=== PATIENT | female | born 1955 | race Caucasian/White ===

== ENCOUNTER 2020-02-09 14:05 | Outpatient (CLI) | payer BC, SELFPAY ==
--- NOTE | ~2020-02-09 | MM_ITS ---
EXAMINATION: MM screening [facility] HISTORY: Screening mammogram TECHNIQUE: Craniocaudal and mediolateral oblique 3-D tomosynthesis images were obtained and synthetic 2-D images were generated. CAD analysis was submitted and interpreted. COMPARISON: 12/10/2018, 11/13/2017, 10/24/2016 BREAST PARENCHYMAL COMPOSITION: There are scattered areas of fibroglandular density. FINDINGS: There is no evidence of suspicious mass, calcification, or architectural distortion to sugg est malignancy in either breast. There has been no suspicious interval change. IMPRESSION: 1. No mammographic evidence of malignancy. 2. Recommend routine screening mammography in one year. BI-RADS Category 1: Negative Reviewed, dictated and finalized at location A.
== END 2020-02-09 14:06 | disposition home or self-care (01) ==
LOC: ANHIMG 14:08
PROVIDERS: PCP Physician Assistant; Visit Provider Nurse Practitioner
DX: Z12.31 Encounter for screening mammogram for malignant neoplasm of breast (principal)
CPT/HCPCS: 77063; 77067

== ENCOUNTER → 2020-08-31 01:50 | Outpatient (CLI) | payer MEDICARE, SELFPAY ==
[2020-08-31 18:54] LABS: SARS-CoV-2 RNA PCR Negative
== END ==
PROVIDERS: Family Provider Family Medicine; PCP Physician Assistant; Visit Provider Internal Medicine Gastroenterology
DX: Z01.812 Encounter for preprocedural laboratory examination (principal); Z20.822 Contact with and (suspected) exposure to COVID-19
CPT/HCPCS: C9803; U0003; U0005

== ENCOUNTER 2020-09-04 00:13 | Day surgery (SDC) | payer MEDICARE, SELFPAY ==
[2020-07-19 14:48] VITALS: BMI 39.0
[2020-08-19 14:30] VITALS: BMI 39.2
--- NOTE | 2020-09-03 11:35 | WPDANESEPPF ---
Anes - Initial Pre Proc Eval Procedure: Operation Date: 09/04/20 08:30 Proposed Procedures p Screening Colonoscopy - Daniele Hdz MD <Austin Barber, DO - Last Filed: 09/03/20 11:37> Date/Time: 09/03/20 11:35 <Austin Barber DO - Last Filed: 09/03/20 11:37> Surgeon: Daniele Hdz MD <Austin Barber, DO - Last Filed: 09/03/20 11:37> Pre Op Diagnosis: Neoplasm Screening <Austin Barber DO - Last Filed: 09/03/20 11:37> Patient Data Age: 65 Gender: F Height: 1.75 m Weight: 120.5 kg <Austin Barber DO - Last Filed: 09/03/20 11:37> Allergies Allergy/AdvReac Type Severity Reaction Status Date / Time Penicillins Allergy Intermediate Hives Verified 09/04/20 07:16 sulfa Allergy Intermediate Other Uncoded 07/19/20 14:49 <Austin Barber DO - Last Filed: 09/03/20 11:37> Home Medications Medication Instructions Recorded Confirmed Type allopurinol 300 mg PO DAILY 07/19/20 08/19/20 History aspirin 325 mg PO DAILY 07/19/20 08/19/20 History atorvastatin 40 mg PO DAILY 07/19/20 08/19/20 History cholecalciferol (vitamin D3) 125 mcg PO DAILY 07/19/20 08/19/20 History [Vitamin D3] cyanocobalamin (vitamin B-12) 500 mcg PO DAILY 07/19/20 08/19/20 History [Vitamin B-12] fluticasone propionate [Flonase] 2 spray INTRANASAL DAILY PRN 07/19/20 08/19/20 History levothyroxine 50 mcg PO DAILY 07/19/20 08/19/20 History metformin 2,000 mg PO DAILY 07/19/20 08/19/20 History olmesartan-hydrochlorothiazide 1 tablet PO DAILY 07/19/20 08/19/20 History omega-3 fatty acids-vitamin E 1 cap PO DAILY 07/19/20 08/19/20 History [Fish Oil] semaglutide [Ozempic] 1 mg SUBCUT WEEKLY 07/19/20 08/19/20 History <Austin Barber DO - Last Filed: 09/03/20 11:37> Patient hx anesthesia problems: none <Miah Galindo MD - Last Filed: 09/04/20 07:37> Family hx anesthesia problems: none <Miah Galindo MD - Last Filed: 09/04/20 07:37> [facility] Past Medical History Medical History: Medical History (Updated 09/03/20 @ 11:36 by Austin Barber DO) 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 Diabetes type 2, controlled Hyperlipidemia Hypertension Hypothyroidism Neuropathy WAYLON (obstructive sleep apnea) CPAP TIA (transient ischemic attack) 2017 <Austin Barber DO - Last Filed: 09/03/20 11:37> Surgical History Surgical History: Surgical History (Updated 09/03/20 @ 11:36 by Austin Barber DO) History of x3 History of hysterectomy <Austin Barber DO - Last Filed: 09/03/20 11:37> Social History Social History: Social History Smoking status: Never smoker Substance use type: does not use Living arrangements: alone Spiritual care concerns: No <Austin Barber DO - Last Filed: 09/03/20 11:37> Anes - Eval Final PreProcedure Day of Procedure 09/03/20 11:35 <Austin Barber DO - Last Filed: 09/03/20 11:37> Patient weight: obese <Austin Barber DO - Last Filed: 09/03/20 11:37> Heart: regular rate and rhythm <Austin Barber DO - Last Filed: 09/03/20 11:37> Lungs: clear to auscultation and normal air movement <Austin Barber DO - Last Filed: 09/03/20 11:37> Airway: Mallampati scale class II <Austin Barber DO - Last Filed: 09/03/20 11:37> Neurological: alert and oriented <Austin Barber DO - Last Filed: 09/03/20 11:37> Last oral intake: >/= 8 hours <Austin Barber DO - Last Filed: 09/03/20 11:37> ASA classification: III <Austin Barber DO - Last Filed: 09/03/20 11:37> Emergent: no <Austin Barber DO - Last Filed: 09/03/20 11:37> Anesthetic plan: proceed <Austin Barber DO - Last Filed: 09/03/20 11:37> Anesthesia type and monitoring: general GIVS and standard monitorin
[2020-09-04 07:17] VITALS: BP 125/92; PULSE 106; RESP 20; TEMP 36.3; O2SAT 97; BMI 37.3
[2020-09-04] MEDS: LACTATED RINGERS 1,000 ML 150 ML IV CONT (07:26)
[2020-09-04 07:45] LABS: Glucose Point of Care 133 (65-105)
--- NOTE | 2020-09-04 08:45 | PM.HPGS ---
History of Present Illness History of Present Illness Consent: Risks, benefits, and alternatives have been discussed and questions answered. Patient agrees to proceed with procedure. Chief complaint: Neoplasm Screening Narrative: Iveth Cortez is a 65 year old female here for screening colonoscopy, last one 2010 Review of Systems Constitutional: Constitutional: Denies headache(s) and Denies weakness Eyes: Eyes: Denies blurry vision ENT: Reports Normal hearing present, Denies headache(s) and Denies neck pain Cardiovascular: Cardiovascular: Denies chest pain and Denies dyspnea Respiratory: Respiratory: Denies dyspnea Gastrointestinal: Gastrointestinal: Reports no additional gastrointestinal complaints Genitourinary: Genitourinary: Denies dysuria Musculoskeletal: Musculoskeletal: Denies neck pain Integumentary/Breasts: Skin/Breast: Denies dry skin Neurologic: Reports Normal hearing present, Denies headache(s) and Denies weakness Psychiatric: Psychiatric: Denies anxiety Endocrine: Endocrine: Denies change in body appearance Hematologic/Lymphatic: Hematologic/Lymphatic: Denies easy bleeding Allergic/Immunologic: Allergic/Immunologic: Denies urticaria PMFSH Past Medical History Medical History (Updated 09/04/20 @ 08:45 by Daniele Hdz MD) Colon cancer screening 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 Diabetes type 2, controlled Hyperlipidemia Hypertension Hypothyroidism Neuropathy WAYLON (obstructive sleep apnea) CPAP TIA (transient ischemic attack) 2017 Surgical History Surgical History (Updated 09/03/20 @ 11:36 by Austin Barber DO) History of x3 History of hysterectomy Social History Social History Smoking status: Never smoker Substance use type: does not use Living arrangements: alone Spiritual care concerns: No Meds Home Medications and Allergies Home Medications Medication Instructions Recorded Confirmed Type allopurinol 300 mg PO DAILY 07/19/20 08/19/20 History aspirin 325 mg PO DAILY 07/19/20 08/19/20 History atorvastatin 40 mg PO DAILY 07/19/20 08/19/20 History cholecalciferol (vitamin D3) 125 mcg PO DAILY 07/19/20 08/19/20 History [Vitamin D3] cyanocobalamin (vitamin B-12) 500 mcg PO DAILY 07/19/20 08/19/20 History [Vitamin B-12] fluticasone propionate [Flonase] 2 spray INTRANASAL DAILY PRN 07/19/20 08/19/20 History levothyroxine 50 mcg PO DAILY 07/19/20 08/19/20 History metformin 2,000 mg PO DAILY 07/19/20 08/19/20 History olmesartan-hydrochlorothiazide 1 tablet PO DAILY 07/19/20 08/19/20 History omega-3 fatty acids-vitamin E 1 cap PO DAILY 07/19/20 08/19/20 History [Fish Oil] semaglutide [Ozempic] 1 mg SUBCUT WEEKLY 07/19/20 08/19/20 History Allergies Allergy/AdvReac Type Severity Reaction Status Date / Time Penicillins Allergy Intermediate Hives Verified 09/04/20 07:16 sulfa Allergy Intermediate Other Uncoded 07/19/20 14:49 Vital Signs Vital Signs - 24 hr 09/04/20 07:17 Temperature 97.3 F L Pulse Rate 106 H Respiratory Rate 20 Blood Pressure 125/92 H Pulse Oximetry 97 Exam Const: General: comfortable and no acute distress HENMT: General nose exam: Normal nares present Eyes: General: appearance normal, both eyes and all related structures Neck: Neck: no JVD Resp: Auscultation: clear to auscultation bilaterally Cardio: Rate: regular rate Rhythm: regular rhythm GI: Inspection: non-distended GI Palp: Yes Soft to palpation Skin: General skin exam: normal color Neuro: General: gait normal Speech: normal speech Extrem: General: normal to inspection Psych: Mental Status: mental status grossly normal Assessment and Plan Assessment and plan (1) Colon cancer screening: Code(s): Z12.11 - Encounter for screening for malignant neoplasm of colon Status: Acute Assessment and Plan: proceed with colonoscopy
[2020-09-04 09:15] VITALS: BP 100/63; PULSE 102; RESP 24; O2SAT 96
[2020-09-04 09:25] VITALS: BP 104/65; PULSE 96; RESP 21; O2SAT 95
[2020-09-04 09:35] VITALS: BP 114/77; PULSE 94; RESP 17; O2SAT 94
== END 2020-09-04 09:50 | disposition home or self-care (01) ==
PROVIDERS: Family Provider Family Medicine; PCP Physician Assistant; Visit Provider Internal Medicine Gastroenterology
PROC: 0DJD8ZZ Inspection of Lower Intestinal Tract, Via Natural or Artificial Opening Endoscopic (ICD-10-PCS; CPT 45378; principal; 2020-09-04 08:30)
DX: Z12.11 Encounter for screening for malignant neoplasm of colon (principal); D12.0 Benign neoplasm of cecum; D12.5 Benign neoplasm of sigmoid colon; D12.2 Benign neoplasm of ascending colon; Q27.33 Arteriovenous malformation of digestive system vessel; K64.8 Other hemorrhoids; I10 Essential (primary) hypertension; E11.40 Type 2 diabetes mellitus with diabetic neuropathy, unspecified; Q63.8 Other specified congenital malformations of kidney; E78.5 Hyperlipidemia, unspecified; E03.9 Hypothyroidism, unspecified; G47.33 Obstructive sleep apnea (adult) (pediatric); Z86.73 Personal history of transient ischemic attack (TIA), and cerebral infarction without residual deficits; Z79.84 Long term (current) use of oral hypoglycemic drugs; Z79.82 Long term (current) use of aspirin
CPT/HCPCS: 45385; 82948; 88305; C9803; J2704; J7120; U0003; U0005

== ENCOUNTER 2021-02-20 09:06 | Outpatient (CLI) | payer MEDICARE, SELFPAY ==
--- NOTE | ~2021-02-20 | MM_ITS ---
EXAMINATION: MM screening [facility] HISTORY: Screening TECHNIQUE: Craniocaudal and mediolateral oblique 3-D tomosynthesis images were obtained and synthetic 2-D images were generated. CAD analysis was submitted and interpreted. COMPARISON: Comparison to multiple prior studies sequentially, with oldest reviewed study dated 07/2015. BREAST PARENCHYMAL COMPOSITION: There are scattered areas of fibroglandular density. FINDINGS: There is no evidence of suspicious mass, calcification, or architectural distortion to sugg est malignancy in either breast. There has been no suspicious interval change. IMPRESSION: 1. No mammographic evidence of malignancy. 2. Recommend routine screening mammography in one year. BI-RADS Category 1: Negative Reviewed, dictated and finalized at location A.
== END 2021-02-20 09:07 | disposition home or self-care (01) ==
PROVIDERS: PCP Physician Assistant; Visit Provider Nurse Practitioner
DX: Z12.31 Encounter for screening mammogram for malignant neoplasm of breast (principal)
CPT/HCPCS: 77063; 77067

== ENCOUNTER 2021-08-08 03:57 | Day surgery (SDC) | payer MEDICARE, SELFPAY ==
[2021-08-07 14:39] VITALS: BMI 37.4
[2021-08-08] VITALS (15 sets, daily range): BP systolic 105–132; BP diastolic 70–86; PULSE 67–89; RESP 12–16; TEMP 36.3–36.8; O2SAT 90–99; BMI 36.4
[2021-08-08 10:50] LABS: Basophils Absolute Auto 0.1 K/mm3 (0.0-0.1); Basophils Percent Auto 0.7 % (0.2-1.2); Eosinophils Absolute Auto 0.2 K/mm3 (0-0.3); Eosinophils Percent Auto 2.1 % (0-4.4); Hemoglobin 12.3 g/dL (12.0-15.0); Immature Granulocyte Absolute 0.07 K/mm3 (0.00-0.031); Immature Granulocyte Percent A 0.8 % (0-0.5); Lymphocytes Absolute Auto 2.32 K/mm3 (0.9-3.2); Lymphocytes Percent Auto 26.1 % (18.3-44.2); Mean Corpuscular HGB Conc 33.2 g/dl (32-36); Mean Corpuscular Hemoglobin 28.7 pg (26-34); Mean Corpuscular Volume 86.2 fl (80-100); Mean Platelet Volume 10.5 fl (7.4-10.4); Monocytes Absolute Auto 0.7 K/mm3 (0.1-0.6); Monocytes Percent Auto 7.3 % (2.6-8.5); Neutrophils Absolute Auto 5.6 K/mm3 (1.3-6.7); Platelet Count Result 314 k/mm3 (150-375); Red Blood Count 4.29 M/mm3 (4.2-5.4); Red Cell Distribution Width 17.1 % (11.5-14.5); White Blood Count 8.9 K/mm3 (4.5-10.0)
[2021-08-08 11:00] LABS: Anion Gap 7 mmol/L (8-16); Blood Urea Nitrogen 17 mg/dL (7-17); Calcium 10.1 mg/dL (8.4-10.2); Carbon Dioxide 25 mmol/L (22-30); Chloride 105 mmol/L (98-107); Estimated CRCL calculation 64 ml/min; Estimated Glomerular Filt Rate 55; Glucose 123 mg/dL (65-110); Sodium 137 mmol/L (137-145)
[2021-08-08 11:01] LABS: Prothrombin Time 12.9 Seconds (11.1-14.7)
--- NOTE | 2021-08-08 12:22 | WPDMODSED ---
Moderate Sedation Note-Pt Data Patient Data Diagnosis: Presumed coronary artery disease abnormal CTA Present Complaint: exertional shortness of breath which is chronic Procedure to be performed/Plan: left heart catheterization Allergies Allergy/AdvReac Type Severity Reaction Status Date / Time Penicillins Allergy Intermediate Hives Verified 08/08/21 10:29 sulfa Allergy Mild Other Uncoded 08/08/21 10:29 Home Medications Medication Instructions Recorded Confirmed Type allopurinol 300 mg PO DAILY 07/19/20 08/08/21 History aspirin 325 mg PO DAILY 07/19/20 08/08/21 History atorvastatin 40 mg PO DAILY 07/19/20 08/07/21 History cholecalciferol (vitamin D3) 125 mcg PO DAILY 07/19/20 08/08/21 History [Vitamin D3] cyanocobalamin (vitamin B-12) 500 mcg PO DAILY 07/19/20 08/07/21 History [Vitamin B-12] fluticasone propionate [Flonase] 2 spray INTRANASAL DAILY PRN 07/19/20 08/07/21 History levothyroxine 50 mcg PO DAILY 07/19/20 08/08/21 History metformin 2,000 mg PO DAILY 07/19/20 08/07/21 History olmesartan-hydrochlorothiazide 1 tablet PO DAILY 07/19/20 08/07/21 History semaglutide [Ozempic] 1 mg SUBCUT WEEKLY 07/19/20 08/07/21 History cyanocobalamin-cobamamide [B12] jennifer SUBLINGUAL 08/07/21 History Current Medications: Active Medications Sodium Chloride (Normal Saline Iv) 500 mls @ 100 mls/hr IV CONT .Q5H PRIYA Sedation/Anesthesia: No previous sedation/anesthesia problems (including family history). 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 Diabetes type 2, controlled Hyperlipidemia Hypertension Hypothyroidism Neuropathy WAYLON (obstructive sleep apnea) CPAP TIA (transient ischemic attack) 2017 Surgical History Surgical History (Updated 09/03/20 @ 11:36 by Austin Barber DO) History of x3 History of hysterectomy Social History Social History Smoking status: Never smoker Alcohol intake: never Substance use: never Substance use type: does not use Spiritual care concerns: No Mod Sed Physical Exam Physical Exam Pre Procedural Exam: Normal: Neck, Throat, Airway, Lungs, Heart Size, Heart Rate, Heart Rhythm, Neuro Exam and Extremities and Variation: Appearance ( pleasant obese lady no apparent distress) Hours since solid foods: 12 Hours since liquid intake: 12 Mallampati Classification: class II Internal Medicine - PN: Obj Da Vital Signs Vital Signs: Vital Signs - 24 hr 08/08/21 10:35 Temperature 36.3 C L Respiratory Rate 12 Blood Pressure 132/86 Pulse Oximetry 99 Meds/Results Medications: Active Medications Generic Name Dose Route Start Last Admin Trade Name Freq PRN Reason Stop Dose Admin Sodium Chloride 500 mls @ 100 mls/hr 08/08/21 10:00 Normal Saline Iv IV CONT .Q5H PRIYA Labs CBC & Chem 7: 08/08/21 10:19 08/08/21 10:19 Labs: Laboratory Results - last 24 hr 08/08/21 08/08/21 08/08/21 10:19 10:19 10:19 WBC 8.9 RBC 4.29 Hgb 12.3 Hct 37.0 MCV 86.2 MCH 28.7 MCHC 33.2 RDW 17.1 H Plt Count 314 MPV 10.5 H Immature Gran % (Auto) 0.8 H Neut % (Auto) 63.0 Lymph % (Auto) 26.1 [place] % (Auto) 7.3 Eos % (Auto) 2.1 Baso % (Auto) 0.7 Lymph # (Auto) 2.32 [place] # (Auto) 0.7 H Eos # (Auto) 0.2 Baso # (Auto) 0.1 Abs Immat Gran (auto) 0.07 H Absolute Neuts (auto) 5.6 Absolute Nucleated RBC 0.0 Nucleated RBC % 0.0 PT 12.9 INR 1.0 Sodium 137 Potassium 4.0 Chloride 105 Carbon Dioxide 25 Anion Gap 7 L BUN 17 Creatinine 1.00 Estim Creat Clear Calc 64 Estimated GFR 55 L Glucose 123 H Calcium 10.1 ASA Classification/Sedation ASA Classification/Sedation ASA Class: II Emergent: No Risks: Risks, benefits and alternatives explained and patient/family accep
--- NOTE | 2021-08-08 13:01 | WPDCARDPROC ---
Cardiac Cath Procedure Note Date of procedure:: 08/08/21 Performing physician:: Leroy Christianson MD Indication:: Abnormal coronary CTA Brief clinical history:: this is a 66-year-old woman without any previous coronary disease and denies any symptoms of chest pain. She has been found to have a significantly abnormal ECG which led to a noninvasive workup including a coronary CTA which apparently a suggests that there is moderate stenosis in the left anterior descending. Because of this an angiogram has been recommended. Procedure Procedure performed:: Left ventriculogram coronary angiogram Sedation/Medication given:: fentanyl 50 mg Versed 2 mg case start time 12:28 p.m. case end time 12:58 p.m. sedation provided by Disha Self RN, trained observer Access site:: right femoral artery Estimated blood loss:: 20-30 cc Procedure note:: patient was brought to the cardiac catheterization lab in the postabsorptive state where the right femoral triangle was prepared and draped in the normal fashion. Anesthesia was provided with 1% lidocaine infiltrated locally. Using the modified Seldinger technique a 5 [place] sheath was placed into the femoral artery after this left heart catheterization was carried out. I used a 5 [place] angled pigtail catheter to measure left-sided hemodynamics and to perform a left ventriculogram in the [place] projection. After this the right coronary artery was engaged and injected using a 5 [place] JR4 catheter. The left coronary was engaged and injected using a 5 [place] FL4 catheter. I then re-engage the right coronary using a 5 [place] AL1 catheter. Following this the case was terminated angiogram was done of the femoral artery through the sheath after which I decided to have the sheath removed with direct manual compression. The patient tolerated the procedure well there were no apparent complications. 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 Findings:: Hemodynamics: Central aortic pressure was 118 over 70 left ventricle 118/2 end-diastolic 12. There was no gradient on pullback across the aortic valve. Left ventricle: The LV is normal in size and contracts vigorously in all segments the ejection fraction I would visually estimate to be 60% without regional wall motion abnormalities. The left main coronary artery is large in caliber and nicely patent the left anterior descending is a moderate to large caliber artery proximally and then tapers to become very small and terminates prior to the apex. The proximal aspect of the LAD is moderately calcified. There is no flow-limiting stenosis in the vessel. A very small 2nd septal branch has an ostial 80% stenosis. The circumflex is a medium caliber vessel giving rise to the marginal branches the circumflex is angiographically unremarkable. The right coronary artery is very large in caliber and dominant to the posterior circulation the right coronary artery is smooth and angiographically normal in appearance. 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 Initially I was considering that this could be an anomalous vessel but it proved to be a fistulous connection to a cardiac vein. Conclusion:: 1. Right coronary dominant circulation with no significant coronary artery stenosis save for about 80% stenosis of a small 2nd septal branch of the LAD. 2. Moderately calcified proximal LAD probably resulting in the impression on CTA that there is a stenosis in this segment. 3. 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 Leroy Christianson MD FACC
== END 2021-08-08 18:50 | disposition home or self-care (01) ==
PROVIDERS: PCP Physician Assistant; Visit Provider Specialist
PROC: 4A023N7 Measurement of Cardiac Sampling and Pressure, Left Heart, Percutaneous Approach (ICD-10-PCS; CPT 93452; principal; 2021-08-08 11:30)
DX: I25.10 Atherosclerotic heart disease of native coronary artery without angina pectoris (principal); I65.21 Occlusion and stenosis of right carotid artery; I12.9 Hypertensive chronic kidney disease with stage 1 through stage 4 chronic kidney disease, or unspecified chronic kidney disease; Z86.73 Personal history of transient ischemic attack (TIA), and cerebral infarction without residual deficits; D64.9 Anemia, unspecified; E11.22 Type 2 diabetes mellitus with diabetic chronic kidney disease; N18.9 Chronic kidney disease, unspecified; E78.5 Hyperlipidemia, unspecified; G47.30 Sleep apnea, unspecified; Z79.82 Long term (current) use of aspirin; Z79.84 Long term (current) use of oral hypoglycemic drugs; E03.9 Hypothyroidism, unspecified; G47.33 Obstructive sleep apnea (adult) (pediatric); R06.00 Dyspnea, unspecified; E11.40 Type 2 diabetes mellitus with diabetic neuropathy, unspecified
CPT/HCPCS: 36415; 80048; 85025; 85610; 93458; A9270; C1887; C1894; J1644; J2250; J3010; J7040

== ENCOUNTER → 2022-02-02 14:42 | Outpatient (CLI) | payer MEDICARE, SELFPAY ==
--- NOTE | ~2022-02-02 | XR_ITS ---
XR foot RT min 3V DATE: 02/02/2022 14:57 INDICATION: Foot ulcer, right third toe TECHNIQUE: 4 views of right foot COMPARISON: None FINDINGS: Anterior and posterior tibial artery, dorsalis pedis artery, metatarsal and even digital ar stella calcifications, suggesting diabetes. There is prominent soft tissue swelling of the third digit. There is osteoarthritic change at the tarsal and tarsometatarsal joints. There is mild deformity and flattening of the second metatarsal head, likely due to avascular necrosis. There is prominent plantar and mild posterior calcaneal enthesopathy. No fracture or dislocation, periosteal reaction or bone destruction is detected. 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
== END ==
PROVIDERS: PCP Physician Assistant; Visit Provider Physician Assistant
DX: L98.491 Non-pressure chronic ulcer of skin of other sites limited to breakdown of skin (principal); M79.89 Other specified soft tissue disorders; M19.071 Primary osteoarthritis, right ankle and foot; M77.31 Calcaneal spur, right foot
CPT/HCPCS: 73630

== ENCOUNTER → 2022-02-25 09:10 | Outpatient (CLI) | payer MEDICARE, SELFPAY ==
--- NOTE | ~2022-02-25 | DEXA_ITS ---
Bone Density Report Name: ISABELLA MUHAMMAD Age: 66 Sex: Female Ethnicity: White Date of : 1955 Indication: postmenopausal; screening for osteoporosis; height loss; hysterectomy; Referring Provider: LANCEMARA Study: Bone densitometry was performed. Exam Date: February 25, 2022 Accession number: [id number] Bone Density: Region BMD T-score Z-score Classification AP Spine (L1-L4) 1.272 2.0 4.0 Normal Femoral Neck (Left) 0.893 0.4 2.1 Normal Total Hip (Left) 1.111 1.4 2.8 Normal Femoral Neck (Right) 0.810 -0.3 1.3 Normal Total Hip (Right) 1.073 1.1 2.4 Normal Total Hip Mean 1.092 1.3 2.6 Normal World Health Organization criteria for BMD impression classify patients as: Normal (T-score at or above -1.0), Osteopenia (T-score between -1.0 and -2.5), or Osteoporosis (T-score at or below -2.5). 10-year Fracture Risk: FRAX not reported because: All T-scores for Spine Total, Hip Total, Femoral Neck at or above -1.0 Previous Exams: Region Exam Age BMD T-score BMD Change BMD Change Date g/cm2 vs Baseline vs Previous AP Spine(L1-L4) 02/25/2022 66 1.272 2.0 0.005 0.088* 11/13/2017 62 1.184 1.2 -0.083* -0.030* 08/08/2013 58 1.214 1.5 -0.053* -0.027* 10/25/2009 54 1.241 1.8 -0.026* -0.026* 09/03/2006 51 1.267 2.0 Total Hip(Left) 02/25/2022 66 1.111 1.4 -0.027* -0.057* 11/13/2017 62 1.167 1.8 0.029* -0.112* 08/08/2013 58 1.279 2.8 0.141* 0.058* 10/25/2009 54 1.222 2.3 0.084* 0.084* 09/03/2006 51 1.138 1.6 Total Hip(Right) 02/25/2022 66 1.073 1.1 -0.019 -0.038* 11/13/2017 62 1.111 1.4 0.019 -0.067* 08/08/2013 58 1.178 1.9 0.086* 0.012 10/25/2009 54 1.166 1.8 0.074* 0.074* 09/03/2006 51 1.092 1.2 *Denotes significance at 95% confidence level, LSC for AP Spine = 0.022 g/cm2, LSC for Total Hip = 0.027 g/cm2 Clinical Information Provided by Patient: Has used the following medications: Vitamin D Has the following medical conditions: Hysterectomy, Only 1 functioning kidney Patient maximum height was 69 Menopause Age: 46 Drinks caffeinated beverages Onset of menses at age 13 Number of children 3 Impression: The patient has normal bone mass. The BMD
== END ==
PROVIDERS: PCP Physician Assistant; Visit Provider Physician Assistant
DX: Z78.0 Asymptomatic menopausal state (principal)
CPT/HCPCS: 77080

== ENCOUNTER 2022-03-27 15:38 | Emergency (ER) | payer MEDICARE, SELFPAY ==
--- NOTE | ~2022-03-27 | CT_ITS ---
EXAMINATION: CT facial & cervical spine wo DATE: 03/27/2022 15:58 INDICATION: Head and face and neck pain. Fall. TECHNIQUE: Computed tomography (CT) of the maxillofacial region and cervical spine was performed with out intravenous contrast. Automated exposure control and iterative reconstruction technique were empl oyed. The dose-length product was 464.41 mGy-cm. COMPARISON: None FINDINGS: MAXILLOFACIAL CT: There is right periorbital soft tissue swelling. There is a near complete opacification of left maxil gerard sinus and the left ethmoid and sphenoid sinuses. There is moderate mucosal thickening in left fr ontal sinus. There is thickening and sclerosis of the beltrán of left maxillary sinus. There is a dehis cence of floor of left orbit. There are erosions of the beltrán of sphenoid sinus with areas of dehisce nce. There is an osteoma in left ethmoid sinus. There is leftward deviation of the nasal septum. Ther e is occlusion of left ostiomeatal unit. CERVICAL SPINE CT: There are nodules in the thyroid measuring up to 2.1 cm. There is kyphosis of cervical spine. Vertebr al body heights are normal. There is severely decreased disc height at C5-C6. The following disc leve ls are specifically discussed: C2-C3: There is no uncovertebral joint osteoarthritis. There is severe bilateral facet joint osteoart hritis. There is mild bilateral neural foraminal stenosis. There is no central canal stenosis. C3-C4: There is mild bilateral uncovertebral joint osteoarthritis. There is severe bilateral facet jannet int osteoarthritis. There is mild right neural foraminal stenosis. There is mild central canal stenos is. C4-C5: There is mild bilateral uncovertebral joint osteoarthritis. There is severe right and mild lef t facet joint osteoarthritis. There is mild right neural foraminal stenosis. There is mild central ca nal stenosis. C5-C6: There is mild right and severe left uncovertebral joint osteoarthritis. There is severe bilate ral facet joint osteoarthritis. There is mild bilateral neural foraminal stenosis. There is mild cent ral canal stenosis. C6-C7: There is no uncovertebral joint osteoarthritis. There is moderate right and severe left facet joint osteoarthritis. There is no neural foraminal stenosis. There is no central canal stenosis. C7-T1: There is no uncovertebral joint osteoarthritis. There is severe bilateral facet joint osteoart hritis. There is mild right neural foraminal stenosis. There is no central canal stenosis. IMPRESSION: 1. No fracture. 2. Chronic sinusitis. 3. Severe cervical spondylosis. 4. Multinodular goiter. Thyroid ultrasound is recommended for risk stratification. Reviewed, dictated and finalized at location B. IMPRESSION: 1. No fracture. 2. Chronic sinusitis. 3. Severe cervical spondylosis. 4. Multinodular goiter. Thyroid ultrasound is recommended for risk stratificati on.
--- NOTE | ~2022-03-27 | CT_ITS ---
EXAMINATION: CT brain wo con DATE: 03/27/2022 15:58 INDICATION: Head injury. TECHNIQUE: Computed tomography (CT) of the head was performed without intravenous contrast. The mA wa s adjusted according to patient size. Iterative reconstruction technique was employed. The dose-lengt h product was 605.33 mGy-cm. COMPARISON: None FINDINGS: There is no intracranial hemorrhage, acute infarction, or abnormal intracranial mass lesion . There are scattered areas of low attenuation in the cerebral white matter, which is within normal l imits for the patient's age. The ventricles are normal in size. There is mucosal thickening in the pa ranasal sinuses including near complete opacification of left maxillary sinus with thickening and scl erosis of the sinus beltrán. There are erosions of the sinus beltrán including left sphenoid sinus with a reas of dehiscence. The mastoid air cells are normal. The orbits are normal. There is right periorbit al soft tissue swelling. IMPRESSION: 1. Normal aging brain. 2. Chronic sinusitis. Reviewed, dictated and finalized at location B.
[2022-03-27 16:05] VITALS: BP 123/73; PULSE 97; RESP 14; TEMP 36.4; O2SAT 99
--- NOTE | 2022-03-27 16:06 | ED.HEATRA ---
HPI - Head Injury General Chief complaint: Fall Stated complaint: fall/facial injury Time Seen by Provider: 03/27/22 15:41 History of Present Illness HPI Narrative: 66-year-old female presents the emergency room for evaluation of injury sustained from a fall. Patient states she tripped over her own feet and struck her head on the wall. Patient denies any altered mental status or loss of consciousness today. Patient denies any nausea or vomiting. Does report 2 lacerations 1 to the right brow and upper right lip. Related Data Home Medications Medication Instructions Recorded Confirmed allopurinol 300 mg tablet 300 mg PO DAILY 07/19/20 08/08/21 aspirin 325 mg tablet 325 mg PO DAILY 07/19/20 08/08/21 atorvastatin 40 mg tablet 40 mg PO DAILY 07/19/20 08/07/21 cholecalciferol (vitamin D3) 125 125 mcg PO DAILY 07/19/20 08/08/21 mcg (5,000 unit) tablet (Vitamin D3) cyanocobalamin (vitamin B-12) 500 500 mcg PO DAILY 07/19/20 08/07/21 mcg tablet (Vitamin B-12) fluticasone propionate 50 2 spray intranasal DAILY PRN Sinus 07/19/20 08/07/21 mcg/actuation nasal Symptoms spray,suspension levothyroxine 50 mcg tablet 50 mcg PO DAILY 07/19/20 08/08/21 metformin 1,000 mg tablet 2,000 mg PO DAILY 07/19/20 08/07/21 olmesartan 20 1 tablet PO DAILY 07/19/20 08/07/21 mg-hydrochlorothiazide 12.5 mg tablet semaglutide 1 mg/dose (2 mg/1.5 1 mg subcut WEEKLY 07/19/20 08/07/21 mL) subcutaneous pen injector (Ozempic) cyanocobalamin (B12)-cobamamide jennifer sublingual 08/07/21 5,000 mcg-100 mcg sublingual lozenge (B12) Allergies Allergy/AdvReac Type Severity Reaction Status Date / Time Penicillins Allergy Intermediate Hives Verified 08/08/21 10:29 sulfa Allergy Mild Other Uncoded 08/08/21 10:29 Review of Systems Review of Systems: CONSTITUTIONAL: Denies fever, chills, or sweats. EYES: Denies visual changes, redness, or discharge. ENT: Denies rhinorrhea, congestion, sore throat, or otalgia. CARDIOVASCULAR: Denies chest pain, palpitations, or edema. RESPIRATORY: Denies cough or dyspnea. GASTROINTESTINAL: Denies abdominal pain, nausea, vomiting, or diarrhea. GENITOURINARY: Denies dysuria or hematuria. SKIN: Reports facial laceration MUSCULOSKELETAL: Denies back pain, joint pain, or myalgia. NEUROLOGIC: Denies headache, numbness, dizziness, or weakness. PSYCHIATRIC: Denies anxiety or depression. 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 HEAD: Normocephalic, atraumatic. EYES: Conjunctivae normal, PERRLA and EOMI. CHEST: Clear to auscultation. No respiratory distress. No wheezes rales or rhonchi. No tenderness. HEART: Regular rate and rhythm. No murmur heard. Normal peripheral pulses. BACK: No cervical/thoracic/lumbar tenderness, step-offs, bony abnormality; FROM EXTREMITIES: Normal range of motion. No edema. No clubbing or cyanosis SKIN: Warm, dry, no rash. 1 cm laceration to the right upper lip, half centimeter laceration to right brow NEURO: No focal deficits. Alert and oriented x3. MAEW. CN's II-XI intact bilaterally, normal gait PSYCH: Cooperative. Normal mood and affect. Procedures Laceration Laceration 1: Date: 03/27/22 Time:
[2022-03-27 17:12] VITALS: BP 116/60; PULSE 103; RESP 18; O2SAT 100
== END 2022-03-27 17:14 | disposition home or self-care (01) ==
PROVIDERS: Emergency Provider Nurse Practitioner Family; PCP Physician Assistant
DX: S01.511A Laceration without foreign body of lip, initial encounter (principal); S01.111A Laceration without foreign body of right eyelid and periocular area, initial encounter; E11.40 Type 2 diabetes mellitus with diabetic neuropathy, unspecified; E78.5 Hyperlipidemia, unspecified; I10 Essential (primary) hypertension; E03.9 Hypothyroidism, unspecified; G47.33 Obstructive sleep apnea (adult) (pediatric); Z86.73 Personal history of transient ischemic attack (TIA), and cerebral infarction without residual deficits; Z79.84 Long term (current) use of oral hypoglycemic drugs; Z79.82 Long term (current) use of aspirin; Z90.710 Acquired absence of both cervix and uterus; W01.198A Fall on same level from slipping, tripping and stumbling with subsequent striking against other object, initial encounter
CPT/HCPCS: 12013; 70450; 70486; 72125; 99284

== ENCOUNTER 2022-05-02 07:43 | Inpatient (IN) | payer MEDICARE, SELFPAY ==
[2022-05-02] VITALS (29 sets, daily range): BP systolic 92–125; BP diastolic 60–72; PULSE 87–120; RESP 14–22; TEMP 36.4–36.9; O2SAT 92–100
[2022-05-02 08:20] LABS: Basophils Absolute Auto 0.1 K/mm3 (0.0-0.1); Basophils Percent Auto 0.7 % (0.2-1.2); Eosinophils Absolute Auto 0.2 K/mm3 (0-0.3); Eosinophils Percent Auto 2.8 % (0-4.4); Immature Granulocyte Absolute 0.03 K/mm3 (0.00-0.031); Immature Granulocyte Percent A 0.4 % (0-0.5); Lymphocytes Absolute Auto 2.25 K/mm3 (0.9-3.2); Mean Corpuscular HGB Conc 26.1 g/dl (32-36); Mean Corpuscular Hemoglobin 18.1 pg (26-34); Mean Corpuscular Volume 69.4 fl (80-100); Mean Platelet Volume 9.5 fl (7.4-10.4); Monocytes Absolute Auto 0.7 K/mm3 (0.1-0.6); Neutrophils Absolute Auto 4.1 K/mm3 (1.3-6.7); Neutrophils Percent Auto 56.1 % (45.5-73.1); Nucleated Red Blood Cells Absolute Auto 0.1 K/mm3 (0.0-0.012); Nucleated Red Blood Cells Perc 1.5 % (0.0-0.2); Platelet Count Result 457 k/mm3 (150-375); Red Blood Count 2.32 M/mm3 (4.2-5.4); Red Cell Distribution Width 22.2 % (11.5-14.5); White Blood Count 7.3 K/mm3 (4.5-10.0)
[2022-05-02 08:24] LABS: Hematocrit 16.1 % (37.0-47.0)
[2022-05-02 08:25] LABS: Hemoglobin 4.2 g/dL (12.0-15.0)
--- NOTE | 2022-05-02 08:25 | ED.RECABL ---
HPI - Recheck/Abnormal Lab/Rx General Chief Complaint: Recheck/Abnormal Lab/Rx Stated Complaint: Low Blood Count Time Seen by Provider: 05/02/22 07:51 History of Present Illness HPI narrative: Patient is a 66-year-old female who presents ER with anemia. Patient reports that she has been having some racing of the heart when walking and feeling fatigued so her PCP performed outpatient lab work yesterday. She is contacted today to be told that her hemoglobin is low. Patient reports some slightly darker stools but no increased reflux. No history of GI bleed. She has had a transfusion in the past but was related to heavy vaginal bleeding which no longer occurs. No chest pain or chest pressure. No loss of consciousness. Patient is not on any blood thinners. Related Data Home Medications Medication Instructions Recorded Confirmed allopurinol 300 mg tablet 300 mg PO DAILY 07/19/20 05/02/22 aspirin 325 mg tablet 325 mg PO DAILY 07/19/20 05/02/22 atorvastatin 40 mg tablet 40 mg PO DAILY 07/19/20 05/02/22 cholecalciferol (vitamin D3) 125 125 mcg PO DAILY 07/19/20 05/02/22 mcg (5,000 unit) tablet (Vitamin D3) cyanocobalamin (vitamin B-12) 500 500 mcg PO DAILY 07/19/20 05/02/22 mcg tablet (Vitamin B-12) fluticasone propionate 50 2 spray intranasal DAILY PRN Sinus 07/19/20 05/02/22 mcg/actuation nasal Symptoms spray,suspension levothyroxine 50 mcg tablet 50 mcg PO DAILY 07/19/20 05/02/22 olmesartan 20 1 tablet PO DAILY 07/19/20 05/02/22 mg-hydrochlorothiazide 12.5 mg tablet semaglutide 1 mg/dose (2 mg/1.5 1 mg subcut WEEKLY 07/19/20 05/02/22 mL) subcutaneous pen injector (Ozempic) Allergies Allergy/AdvReac Type Severity Reaction Status Date / Time Penicillins Allergy Intermediate Hives Verified 08/08/21 10:29 sulfa Allergy Mild Other Uncoded 08/08/21 10:29 Review of Systems Review of Systems: All systems reviewed & are unremarkable except as noted in HPI and below Constitutional: Constitutional: Denies chills, Reports fatigue and Denies fever(s) ENT: Denies nasal congestion and Denies sore throat Cardiovascular: Cardiovascular: Denies chest pain, Reports rapid heart rate and Denies radiating jaw, neck or arm pain Respiratory: Respiratory: Denies cough and Denies dyspnea Gastrointestinal: Gastrointestinal: Denies abdominal pain, Denies heartburn, Denies nausea and Denies vomiting Neurologic: Denies syncope, Denies headache(s), Denies focal weakness and Denies numbness PMFSH Past Medical History Medical History (Updated 05/02/22 @ 18:16 by Anamaria Ibarra PA-C) Abnormal cardiac CT angiography (07/2021) Chronic kidney disease, stage 3 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 Hyperlipidemia Hypertension Hypothyroidism Neuropathy Obstructive sleep apnea on CPAP Transient ischemic attack (2016) Type 2 diabetes mellitus Surgical History Surgical History (Updated 05/02/22 @ 12:43 by Anamaria Ibarra PA-C) History of appendectomy (2005) History of x3 History of cardiac catheterization (08/08/21) Right coronary dominant circulation with no significant coronary artery stenosis save for about 80% stenosis of a small 2nd septal branch of the LAD. Normal LV systolic function. History of colonoscopy (09/04/20) Per Dr. Hdz. Notable findings include benign colon polyps, arteriovenous malformations, and internal hemorrhoids. History of hysterectomy (2000) History of incision and drainage (2006) Perirectal abscess. History of tonsillectomy Family History Family History Mother Diabetes mellitus Heart problem Father Heart problem Diabetes mellitus Sibling ALS (amyotrophic lateral sclerosis) Social History Social History (Updated 05/02/22 @ 12:42 by Anamaria Ibarra PA-C) Social History: Surrogate medical decision maker: Joey Cortez, son. Code status: Full code. Smoking status: Nev
[2022-05-02 08:36] LABS: Alanine Aminotransferase 17 U/L (6-35); Albumin Level 3.8 g/dL (3.5-5.1); Alkaline Phosphatase 158 U/L (38-126); Anion Gap 11 mmol/L (8-16); Aspartate Amino Transferase 21 U/L (14-36); Bilirubin Indirect 0.6 mg/dL (0-1.1); Bilirubin,Total 0.8 mg/dL (0.2-1.3); Blood Urea Nitrogen 23 mg/dL (7-17); Calcium 8.8 mg/dL (8.4-10.2); Carbon Dioxide 19 mmol/L (22-30); Chloride 104 mmol/L (98-107); Estimated CRCL calculation 51 ml/min; Estimated Glomerular Filt Rate 45; Glucose 143 mg/dL (65-110); Sodium 134 mmol/L (137-145)
[2022-05-02 08:37] LABS: Iron 24 ug/dL (37-170); Lactate Dehydrogenase 199 U/L (120-246)
[2022-05-02 08:44] LABS: Burr Cells 1+ (NORMAL); Helmet Cells 1+ (NORMAL); Hypochromasia 2+ (NORMAL); Microcytosis 1+ (NORMAL); Ovalocytes 1+ (NORMAL); Platelet Estimate Increased (Adequate); Tear Drop Cells 1+ (NORMAL); Transferrin 334 mg/dL (206-381)
[2022-05-02 08:47] LABS: Schistocytes None Seen (NORMAL)
[2022-05-02 08:48] LABS: Percent Iron Saturation 5 % (20-50)
[2022-05-02 09:15] LABS: Ferritin 7.76 ng/mL (11.1-264)
[2022-05-02 09:45] LABS: Folic Acid 16.3 ng/mL (2.76->20)
[2022-05-02 09:47] LABS: INR 1.3; Prothrombin Time 15.4 Seconds (11.1-14.7)
[2022-05-02 09:48] LABS: Partial Thromboplastin Time 34.9 SECONDS (22.3-36.8)
[2022-05-02] MEDS: SODIUM CHLORIDE 0.9% IV 250 ML 30 ML IV CONT ×2 (10:13→21:19)
[2022-05-02] MEDS: TUBING, BLOOD PLUM PUMP TUBING 1 EACH XX (10:14)
[2022-05-02 10:28] LABS: SARS-CoV-2 RNA PCR Negative
--- NOTE | 2022-05-02 11:19 | ADMGEN ---
This patient, Iveth Cortez, was admitted to Medical Room 248-. Patient/family oriented to hospital policies and general routines including ID bracelet, bed and alarms, visiting hours, pain management, procedures, bathroom and other care routines, personal items, smoking policy, room service/diet, and visiting hours. Information on how to activate the Rapid Response Team has been discussed. Patient/Family are encouraged to report perceived risks to care and to ask questions if they do not understand what they are told or what they should do.
[2022-05-02] MEDS: SODIUM CHLORIDE 0.9% IV 100 ML 30 ML (13:00)
--- NOTE | 2022-05-02 13:00 | PM.IMHP ---
H&P: HPI History of Present Illness Date/Time: 05/02/22 13:00 Chief Complaint: Low hemoglobin. Narrative: This is a very pleasant 66-year-old female with history of colon polyps, colon arterial venous malformation, TIA, type 2 diabetes, chronic kidney disease stage 3, hypertension, hyperlipidemia, hypothyroidism, and sleep apnea who presented to the emergency department with reports of a low hemoglobin. She had labs done yesterday for evaluation fatigue and sensations of racing heart with exertion for at least last several weeks. Today she was told that her hemoglobin was very low and that she needed to come to the ER where her hemoglobin and hematocrit were 4.2 and 16.1% respectively with an MCV of 69.4. Nearly 1 month ago she had several days of dark stools but her stools have essentially been normal since that time although she goes on to say that she typically has constipation. On occasion she will notice a small amount of bright red blood on the toilet tissue after having a hard stool but not in significant quantities. She does not typically have issues with heartburn though she has had issues with occasional nausea and dry heaves the last couple of weeks and indicates that she had 1 episode of heartburn several weeks ago. She takes aspirin 325 mg daily and denies significant NSAID use, caffeine intake, or alcohol use. At the time my evaluation she is resting comfortably and has no significant complaints. Review of Systems Review of Systems: Twelve systems were reviewed. No syncope or near syncope. She had a fall on 03/27/2022 after she got tripped up on her shoes when coming in the door. She was seen emergency department that time as she sustained lacerations to her head and lip and imaging showed multinodular goiter. She has not noticed any swelling or nodules in the neck and denies difficulty swallowing. Weight has remained stable. No hematemesis, hemoptysis, epistaxis, or hematuria. No chest pain or pleuritic pain. Except as documented, all other systems were reviewed and are negative. 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 Hyperlipidemia Hypertension Hypothyroidism Neuropathy Obstructive sleep apnea on CPAP Transient ischemic attack (2017) Type 2 diabetes mellitus Surgical History Surgical History (Updated 05/02/22 @ 12:43 by Anamaria Ibarra PA-C) History of appendectomy (2005) History of x3 History of cardiac catheterization (08/08/21) Right coronary dominant circulation with no significant coronary artery stenosis save for about 80% stenosis of a small 2nd septal branch of the LAD. Normal LV systolic function. History of colonoscopy (09/04/20) Per Dr. Hdz. Notable findings include benign colon polyps, arteriovenous malformations, and internal hemorrhoids. History of hysterectomy (2000) History of incision and drainage (2006) Perirectal abscess. History of tonsillectomy Family History Family History Mother Diabetes mellitus Heart problem Father Heart problem Diabetes mellitus Sibling ALS (amyotrophic lateral sclerosis) Social History Social History (Updated 05/02/22 @ 12:42 by Anamaria Ibarra PA-C) Social History: Surrogate medical decision maker: Joey Cortez, son. Code status: Full code. Smoking status: Never smoker Alcohol intake: current Substance use: never Substance use type: does not use Other substance usage details: occasional alcohol Lack of Transportation: No Lack of Food: Never True Current Housing: I Have Housing Concerned About Future Housing: No Difficulty Paying Gas/Electric Bills: No Difficulty Paying for Meds: No Currently Unemployed: No Education: High School Diploma/GED Difficulty w/
[2022-05-02 17:28] LABS: Glucose Point of Care 111 mg/dl (65-105)
[2022-05-02 18:54] LABS: Hemoglobin 5.6 g/dL (12.0-15.0)
[2022-05-02 18:55] LABS: Hematocrit 19.2 % (37.0-47.0)
[2022-05-02] MEDS: PANTOPRAZOLE SODIUM IV 40 MG VIAL IV PUSH (21:17)
[2022-05-02 21:53] LABS: Glucose Point of Care 93 mg/dl (65-105)
[2022-05-03] VITALS (22 sets, daily range): BP systolic 100–123; BP diastolic 61–73; PULSE 68–94; RESP 14–23; TEMP 36.3–36.8; O2SAT 92–98; BMI 36.3
[2022-05-03] MEDS: TUBING, BLOOD PLUM PUMP TUBING 1 EACH XX (00:20)
[2022-05-03 02:19] LABS: Hemoglobin 7.4 g/dL (12.0-15.0); Mean Corpuscular HGB Conc 30.8 g/dl (32-36); Mean Corpuscular Volume 74.5 fl (80-100); Platelet Count Result 327 k/mm3 (150-375); Red Blood Count 3.22 M/mm3 (4.2-5.4); Red Cell Distribution Width 22.7 % (11.5-14.5); White Blood Count 6.1 K/mm3 (4.5-10.0)
[2022-05-03 02:28] LABS: Anion Gap 14 mmol/L (8-16); Blood Urea Nitrogen 19 mg/dL (7-17); Calcium 8.6 mg/dL (8.4-10.2); Carbon Dioxide 19 mmol/L (22-30); Chloride 103 mmol/L (98-107); Estimated CRCL calculation 55 ml/min; Estimated Glomerular Filt Rate 50; Glucose 99 mg/dL (65-110); Hemoglobin A1C 5.5 % (<5.7); Magnesium 2.1 mg/dL (1.6-2.3); Potassium 4.1 mmol/L (3.4-5.0); Sodium 136 mmol/L (137-145)
[2022-05-03] MEDS: LEVOTHYROXINE SODIUM 50 MCG TABLET PO (06:18)
[2022-05-03 08:05] LABS: Glucose Point of Care 99 mg/dl (65-105)
[2022-05-03] MEDS: FLUTICASONE PROPIONATE 0.05% NA SPR 16 GM BTL (*BKC) 2 SPRAY NASAL (08:16)
[2022-05-03] MEDS: PANTOPRAZOLE SODIUM IV 40 MG VIAL IV PUSH ×2 (08:17→20:23)
[2022-05-03 08:37] LABS: Hematocrit 24.8 % (37.0-47.0); Hemoglobin 7.3 g/dL (12.0-15.0)
[2022-05-03 12:00] LABS: Glucose Point of Care 95 mg/dl (65-105)
[2022-05-03] MEDS: ATORVASTATIN 40 MG TABLET PO (12:15)
[2022-05-03] MEDS: allopurinoL 300 MG TABLET PO (12:15)
[2022-05-03] MEDS: CYANOCOBALAMIN 500 MCG TABLET PO (12:15)
[2022-05-03] MEDS: ESCITALOPRAM OXALATE 10 MG TABLET PO (12:15)
[2022-05-03] MEDS: CHOLECALCIFEROL 1,000 UNITS TABLET 1000 UNITS PO (12:15)
--- NOTE | 2022-05-03 12:48 | WPDGICN ---
Assessment and Plan Assessment and plan (1) Acute blood loss anemia: Code(s): D62 - Acute posthemorrhagic anemia Status: Acute Assessment and Plan: will assess with egd (probably melena several days ago) and also colonoscopy- last year had AVM in colon better after blood transfusion monitor for signs of bleeding (2) Chronic kidney disease, stage 3: Code(s): N18.30 - Chronic kidney disease, stage 3 unspecified Status: Acute Assessment and Plan: monitor (3) Type 2 diabetes mellitus: Code(s): E11.9 - Type 2 diabetes mellitus without complications Status: Acute (4) Hypertension: Code(s): I10 - Essential (primary) hypertension Status: Acute Assessment and Plan: on treatment (5) AVM (arteriovenous malformation) of colon: Code(s): K55.20 - Angiodysplasia of colon without hemorrhage Status: Acute Assessment and Plan: colonoscopy tomorrow GI Consult Note Consult date/time: 05/03/22 12:48 Reason for consult: acute blood loss anemia HPI: Iveth Cortez is a 66 year old female with history of colon polyps with last colonoscopy 2020 and also had non-bleeding arterial venous malformation (routine screening and recommended to repeat in 3 years), TIA on aspirin, type 2 diabetes, chronic kidney disease stage 3, hypertension, and sleep apnea who presented to the emergency department with progressive fatigue and dyspnea on exertion with palpitations for last several days. She had blood work and was told that her hemoglobin was low and that she needed to come to the ER where her hemoglobin and hematocrit were 4.2 and 16.1% respectively with an MCV of 69.4. About 1 month ago she had several days of dark stools but her stools have essentially been normal since that time, she thought that was related to constipation.?Never had EGD. Denies nsaid's or blood thinner only asa. Doing better after prbc Review of Systems Constitutional: Constitutional: Reports fatigue, Reports lethargy and Reports weakness Eyes: Eyes: Denies blurry vision ENT: Reports Normal hearing present Cardiovascular: Cardiovascular: Reports palpitations Respiratory: Respiratory: Reports dyspnea on exertion Gastrointestinal: Gastrointestinal: Denies abdominal pain Genitourinary: Genitourinary: Denies hematuria Musculoskeletal: Musculoskeletal: Denies back pain Integumentary/Breasts: Skin/Breast: Denies rash Neurologic: Denies Abnormal speech present Psychiatric: Psychiatric: Denies anxiety [facility] Past Medical History Medical History (Updated 05/03/22 @ 12:52 by Daniele Hdz MD) Abnormal cardiac CT angiography (07/2021) Acute blood loss anemia AVM (arteriovenous malformation) of colon Chronic kidney disease, stage 3 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 Hyperlipidemia Hypertension Hypothyroidism Neuropathy Obstructive sleep apnea on CPAP Transient ischemic attack (2016) Type 2 diabetes mellitus Surgical History Surgical History (Updated 05/02/22 @ 12:43 by Anamaria Ibarra PA-C) History of appendectomy (2005) History of x3 History of cardiac catheterization (08/08/21) Right coronary dominant circulation with no significant coronary artery stenosis save for about 80% stenosis of a small 2nd septal branch of the LAD. Normal LV systolic function. History of colonoscopy (09/04/20) Per Dr. Hdz. Notable findings include benign colon polyps, arteriovenous malformations, and internal hemorrhoids. History of hysterectomy (2000) History of incision and drainage (2006) Perirectal abscess. History of tonsillectomy Family History Family History Mother Diabetes mellitus Heart problem Father Heart problem Diabetes mellitus Sibling ALS (amyotrophic lateral sclerosis) Social History Social History (Updated 05/02/22 @ 12:42 by Anamaria Ibarra
--- NOTE | 2022-05-03 14:28 | PM.IMPN ---
Progress Note: A&P Assessment and Plan (1) Profound anemia: Code(s): D64.9 - Anemia, unspecified Status: Acute Assessment and Plan: Outpatient labs revealed hemoglobin of 4. Concern for GI blood loss given complaints of dark stools. She has been transfused a total of 4 units with symptomatic improvement and hemoglobin has increased to 7.4. Continue to monitor H&H q6 and transfuse as needed to maintain hemoglobin 7.0 or above. Stool occult blood test is pending. Continue IV Protonix. Aspirin on hold. Plan for EGD and colonoscopy tomorrow. Full liquid diet, NPO at midnight (2) Chronic kidney disease, stage 3: Code(s): N18.30 - Chronic kidney disease, stage 3 unspecified Status: Acute Assessment and Plan: Renal function appears to be consistent with baseline. Continue to monitor (3) Type 2 diabetes mellitus: Code(s): E11.9 - Type 2 diabetes mellitus without complications Status: Acute Assessment and Plan: A1c is 5.5. No need for further monitoring (4) Obstructive sleep apnea on CPAP: Code(s): G47.33 - Obstructive sleep apnea (adult) (pediatric); Z99.89 - Dependence on other enabling machines and devices Status: Acute Assessment and Plan: Continue home CPAP (5) Hypertension: Code(s): I10 - Essential (primary) hypertension Status: Acute Assessment and Plan: Blood pressures have been stable. Last BP 117/63. Olmesartan-hydrochlorothiazide on hold. Resume when clinically appropriate. (6) Hypothyroidism: Code(s): E03.9 - Hypothyroidism, unspecified Status: Acute Assessment and Plan: TSH is pending. Continue levothyroxine (7) Multinodular goiter: Code(s): E04.2 - Nontoxic multinodular goiter Status: Acute Assessment and Plan: Recent is a dental findings of multinodular goiter. Continue with appropriate outpatient follow-up. Subjective Date/time seen: 05/03/22 14:28 Interval history: Date of service: 05/03/2022 Iveth Cortez is a 66 year old female with a history of AVM of colon, CKD, hypertension, hyperlipidemia, hypothyroidism, WAYLON on CPAP, TA, and type 2 diabetes mellitus who is seen in follow-up for profound anemia, suspected secondary to blood loss. Patient states that for several weeks she had been weak and having trouble completing tasks due to increased fatigue and labored breathing. After receiving blood transfusion, she is already feeling much improved. She was able to get up today and walk to the bathroom and pressure TS without any difficulty, which she states is a significant improvement from prior to presentation. She is ambulating without difficulty. She no longer is short of breath. Denies conversational dyspnea. Feels her weakness is improved. She denies palpitations. No dizziness or lightheadedness. She denies abdominal pain or epigastric pain. Endorses nausea but no vomiting. She has poor appetite. No bowel movements today. Review of Systems Review of Systems: All systems reviewed & are unremarkable except as noted in HPI and below Exam Narrative: General: Well-nourished, well-appearing 66-year-old female, sitting up in bed, comfortable, NARD Neuro: awake, alert and oriented x4, speech clear, no focal neuro deficits noted HEENMT: normocephalic, atraumatic, EOMI, sclerae anicteric Respiratory: clear to auscultation bilaterally, nonlabored breathing Cardio: regular rate, regular rhythm with S1-S2 Abdomen: nondistended, normoactive bowel sounds, soft, nontender to palpation Extremities: no edema, erythema, or tenderness to palpation, DP pulses 2+ bilaterally Skin: no rashes or lesions, warm and dry Psych: appropriate mood and affect, judgment and insight intact Objective Data Vital Signs Vital Signs: Vital Signs - 24 hr 05/02/22 15:26 05/02/22 16:18 05/02/22 16:01 Temperature 97.6 F 98.5 F Pulse Rate 92 90 92 Respir
[2022-05-03 15:06] LABS: Hematocrit 24.3 % (37.0-47.0); Hemoglobin 7.3 g/dL (12.0-15.0)
[2022-05-03] MEDS: OMEGA 3 POLYUNSAT FATTY ACIDS 1 GM CAP 2 GM PO (17:01)
[2022-05-03] MEDS: BISACODYL 5 MG TABLET EC 20 MG PO (17:59)
[2022-05-03] MEDS: polyethylene glycoL 3350 238 GM BOTTLE PO (18:01)
[2022-05-03 23:21] LABS: Hematocrit 25.5 % (37.0-47.0); Hemoglobin 7.7 g/dL (12.0-15.0)
[2022-05-04] VITALS (9 sets, daily range): BP systolic 103–126; BP diastolic 70–76; PULSE 78–94; RESP 18–22; TEMP 36.4–36.9; O2SAT 93–96
[2022-05-04 06:39] LABS: Hematocrit 23.9 % (37.0-47.0); Hemoglobin 7.3 g/dL (12.0-15.0); Mean Corpuscular HGB Conc 30.5 g/dl (32-36); Mean Corpuscular Hemoglobin 22.9 pg (26-34); Mean Corpuscular Volume 74.9 fl (80-100); Platelet Count Result 302 k/mm3 (150-375); Red Blood Count 3.19 M/mm3 (4.2-5.4); Red Cell Distribution Width 22.9 % (11.5-14.5); White Blood Count 6.5 K/mm3 (4.5-10.0)
[2022-05-04 07:09] LABS: Anion Gap 11 mmol/L (8-16); Blood Urea Nitrogen 12 mg/dL (7-17); Calcium 8.7 mg/dL (8.4-10.2); Carbon Dioxide 21 mmol/L (22-30); Chloride 102 mmol/L (98-107); Estimated CRCL calculation 60 ml/min; Estimated Glomerular Filt Rate 55; Glucose 96 mg/dL (65-110); Potassium 3.8 mmol/L (3.4-5.0); Sodium 134 mmol/L (137-145)
[2022-05-04] MEDS: PANTOPRAZOLE SODIUM IV 40 MG VIAL IV PUSH (08:20)
[2022-05-04] MEDS: ATORVASTATIN 40 MG TABLET PO (08:25)
[2022-05-04] MEDS: ESCITALOPRAM OXALATE 10 MG TABLET PO (08:25)
[2022-05-04] MEDS: CYANOCOBALAMIN 500 MCG TABLET PO (08:25)
[2022-05-04] MEDS: CHOLECALCIFEROL 1,000 UNITS TABLET 1000 UNITS PO (08:25)
[2022-05-04] MEDS: OMEGA 3 POLYUNSAT FATTY ACIDS 1 GM CAP 2 GM PO (08:25)
[2022-05-04] MEDS: allopurinoL 300 MG TABLET PO (08:26)
[2022-05-04] MEDS: LEVOTHYROXINE SODIUM 50 MCG TABLET PO (08:38)
[2022-05-04] MEDS: LACTATED RINGERS 1,000 ML 150 ML IV CONT (10:26)
--- NOTE | 2022-05-04 10:54 | WPDANESEPPF ---
Anes - Initial Pre Proc Eval Procedure: Operation Date: 05/04/22 15:30 Proposed Procedures p Esophagogastroduodenoscopy & Colonoscopy - Daniele Hdz MD Date/Time: 05/04/22 10:54 Surgeon: Maty Lewis PA-C Pre Op Diagnosis: Anemia Patient Data Age: 66 Gender: F Height: 1.7 m Weight: 105.1 kg Last Vital Signs Temp 97.6 F 05/04/22 10:24 Pulse 94 05/04/22 10:24 Resp 18 05/04/22 10:24 BP 122/76 05/04/22 10:24 Pulse Ox 96 05/04/22 10:24 O2 Del Method Room Air 05/04/22 10:24 Allergies Allergy/AdvReac Type Severity Reaction Status Date / Time Penicillins Allergy Intermediate Hives Verified 05/04/22 10:23 sulfa Allergy Mild Other Uncoded 05/04/22 10:23 Home Medications Medication Instructions Recorded Confirmed Type allopurinol 300 mg tablet 300 mg PO DAILY 07/19/20 05/02/22 History aspirin 325 mg tablet 325 mg PO DAILY 07/19/20 05/02/22 History atorvastatin 40 mg tablet 40 mg PO DAILY 07/19/20 05/02/22 History cholecalciferol (vitamin D3) 125 125 mcg PO DAILY 07/19/20 05/02/22 History mcg (5,000 unit) tablet (Vitamin D3) cyanocobalamin (vitamin B-12) 500 500 mcg PO DAILY 07/19/20 05/02/22 History mcg tablet (Vitamin B-12) fluticasone propionate 50 2 spray intranasal DAILY PRN Sinus 07/19/20 05/02/22 History mcg/actuation nasal Symptoms spray,suspension levothyroxine 50 mcg tablet 50 mcg PO DAILY 07/19/20 05/02/22 History olmesartan 20 1 tablet PO DAILY 07/19/20 05/02/22 History mg-hydrochlorothiazide 12.5 mg tablet semaglutide 1 mg/dose (2 mg/1.5 1 mg subcut WEEKLY 07/19/20 05/02/22 History mL) subcutaneous pen injector (Ozempic) escitalopram oxalate 10 mg tablet 10 mg PO DAILY 05/03/22 05/03/22 History icosapent ethyl 1 gram capsule 2 g PO BID 05/03/22 05/03/22 History (Vascepa) Laboratory Tests 05/03/22 05/03/22 05/03/22 11:53 14:54 22:48 WBC RBC Hgb 7.3 g/dL L g/dL 7.7 g/dL L g/dL (12.0-15.0) (12.0-15.0) Hct 24.3 % L % 25.5 % L % (37.0-47.0) (37.0-47.0) MCV MCH MCHC RDW Plt Count MPV Sodium Potassium Chloride Carbon Dioxide Anion Gap BUN Creatinine Estim Creat Clear Calc Estimated GFR Glucose POC Capillary Glucose 95 mg/dl mg/dl (65-105) Calcium 05/04/22 05/04/22 06:19 06:19 WBC 6.5 K/mm3 K/mm3 (4.5-10.0) RBC 3.19 M/mm3 L M/mm3 (4.2-5.4) Hgb 7.3 g/dL L g/dL (12.0-15.0) Hct 23.9 % L % (37.0-47.0) MCV 74.9 fl L fl (80-100) MCH 22.9 pg L pg (26-34) MCHC 30.5 g/dl L g/dl (32-36) RDW 22.9 % H % (11.5-14.5) Plt Count 302 k/mm3 k/mm3 (150-375) MPV 9.0 fl fl (7.4-10.4) Sodium 134 mmol/L L mmol/L (137-145) Potassium 3.8 mmol/L mmol/L (3.4-5.0) Chloride 102 mmol/L mmol/L (98-107) Carbon Dioxide 21 mmol/L L mmol/L (22-30) Anion Gap 11 mmol/L mmol/L (8-16) BUN 12 mg/dL D mg/dL (7-17) Creatinine 1.00 mg/dL mg/dL (0.7-1.0) Estim Creat Clear Calc 60 ml/min ml/min Estimated GFR 55 L (59 - ) Glucose 96 mg/dL mg/dL (65-110) POC Capillary Glucose Calcium 8.7 mg/dL mg/dL (8.4-10.2) Patient hx anesthesia problems: none Family hx anesthesia problems: none Results Review: All pre-operative results and documents have been reviewed as part of the pre-operative evaluation. [facility] Past Medical History Medical History (Updated 05/03/22 @ 12:52 by Daniele Hdz MD) Abnormal cardiac CT angiography (07/2021) Acute blood loss anemia AVM (arteriovenous malformation) of colon Chronic kidney disease, stage 3 Congenital renal anomaly 1 kidney is nonfun
--- NOTE | 2022-05-04 11:30 | SUR.OPER ---
EGD END 1126 COLONOSCOPY START 1130
[2022-05-04 12:25] LABS: Hematocrit 25.6 % (37.0-47.0); Hemoglobin 7.6 g/dL (12.0-15.0)
[2022-05-04 13:33] LABS: Glucose Point of Care 90 mg/dl (65-105)
--- NOTE | 2022-05-04 14:45 | PM.DS ---
DS: Admitting Diagnosis Discharge Date 05/04/2022 Admitting Diagnosis anemia DS: Discharge Diagnosis Discharge Diagnosis (1) Profound anemia: Code(s): D64.9 - Anemia, unspecified Status: Acute Assessment and Plan: Outpatient labs revealed hemoglobin of 4. Concern for GI blood loss given complaints of dark stools. She was transfused a total of 4 units with symptomatic improvement. Hemoglobin remained stable following transfusion around 7.5. Underwent EGD on 05/04/2022 which showed gastritis without evidence of acute bleeding and colonoscopy which revealed large localize AVM, not actively bleeding that was cauterized. She was started on Protonix 40 mg daily. Will avoid NSAIDs. Will follow-up with gastroenterology as an outpatient for capsule endoscopy. Aspirin held for 1 week and then patient can resume on 05/11. Started on p.o. iron supplementation. Repeat H&H in 1 week to ensure remaining stable. (2) Chronic kidney disease, stage 3: Code(s): N18.30 - Chronic kidney disease, stage 3 unspecified Status: Acute Assessment and Plan: Renal function remained consistent with baseline. (3) Type 2 diabetes mellitus: Code(s): E11.9 - Type 2 diabetes mellitus without complications Status: Acute Assessment and Plan: A1c is 5.5. No need for further monitoring (4) Obstructive sleep apnea on CPAP: Code(s): G47.33 - Obstructive sleep apnea (adult) (pediatric); Z99.89 - Dependence on other enabling machines and devices Status: Acute Assessment and Plan: Continue home CPAP (5) Hypertension: Code(s): I10 - Essential (primary) hypertension Status: Acute Assessment and Plan: Blood pressures stable. Continue olmesartan-hydrochlorothiazide on hold. (6) Hypothyroidism: Code(s): E03.9 - Hypothyroidism, unspecified Status: Acute Assessment and Plan: TSH within normal limits. Continue levothyroxine (7) Multinodular goiter: Code(s): E04.2 - Nontoxic multinodular goiter Status: Acute Assessment and Plan: Recent incidental findings of multinodular goiter. Continue with appropriate outpatient follow-up. DS: Summary Hospital Course Hospital Course: Date of admission: 05/02/2022 Date of discharge: 05/04/2022 Iveth Cortez is a 66 year old female with a history of AVM of colon, CKD, hypertension, hyperlipidemia, hypothyroidism, WAYLON on CPAP, TIA, and type 2 diabetes mellitus who presented to the emergency department on 05/02/2022 under the direction of her primary care provider after she was found to be anemic on outpatient labs. She had been complaining of shortness of breath, palpitations, and fatigue which prompted outpatient blood work. On presentation to the ED, she was mildly tachycardic at 1:10 a.m. with additional vital signs stable, hemoglobin was 4.2, hematocrit 16.1, platelets 457, creatinine 1.2, additional laboratory workup was unremarkable, B12, folate, LDH within normal limits. She was admitted to the hospitalist service for further evaluation and management and was seen in consultation by Gastroenterology. Please see above for further details. Found to have large AVM that was cauterized, and this was felt to be the likely etiology for bleeding. She will continue Protonix as an outpatient and she was instructed to avoid NSAIDs. Continue p.o. ferrous sulfate. Plan for outpatient capsule endoscopy. H&H remained stable and patient had marked symptomatic improvement. She was feeling much improved and requested discharge home. Discussed with the patient worrisome signs and symptoms for which to return and she was educated on her medications and was subsequently discharged in hemodynamically stable condition on 05/04/2022. Status at Discharge Functional status at discharge: independent ambulation Overall status at discharge: patient is progressing back to baseline Time
== END 2022-05-04 17:00 | disposition home or self-care (01) | DRG 812 ==
LOC: ANHED 08:43 → ANH2MED 10:30
PROVIDERS: Internal Medicine Gastroenterology; Physician Assistant; Admitting Provider Family Medicine; Emergency Provider Emergency Medicine; PCP Physician Assistant; Visit Provider Family Medicine
PROC: 0DJ08ZZ Inspection of Upper Intestinal Tract, Via Natural or Artificial Opening Endoscopic (ICD-10-PCS; CPT 43235; principal; 2022-05-04 15:30)
DX: D62 Acute posthemorrhagic anemia (principal); D50.9 Iron deficiency anemia, unspecified; K29.70 Gastritis, unspecified, without bleeding; K55.20 Angiodysplasia of colon without hemorrhage; N18.30 Chronic kidney disease, stage 3 unspecified; E11.22 Type 2 diabetes mellitus with diabetic chronic kidney disease; G47.33 Obstructive sleep apnea (adult) (pediatric); E78.5 Hyperlipidemia, unspecified; E03.9 Hypothyroidism, unspecified; E04.2 Nontoxic multinodular goiter; Z86.73 Personal history of transient ischemic attack (TIA), and cerebral infarction without residual deficits; I12.9 Hypertensive chronic kidney disease with stage 1 through stage 4 chronic kidney disease, or unspecified chronic kidney disease; E11.40 Type 2 diabetes mellitus with diabetic neuropathy, unspecified; Z83.3 Family history of diabetes mellitus; Z82.49 Family history of ischemic heart disease and other diseases of the circulatory system; Z79.82 Long term (current) use of aspirin; Z79.899 Other long term (current) drug therapy; Z79.84 Long term (current) use of oral hypoglycemic drugs; K64.8 Other hemorrhoids; K64.4 Residual hemorrhoidal skin tags
CPT/HCPCS: 36415; 36430; 80048; 80053; 82248; 82607; 82728; 82746; 82948; 83036; 83540; 83550; 83615; 83735; 84443; 84466; 85014; 85018; 85025; 85027; 85610; 85730; 86850; 86900; 86901; 86923; 88305; 88342; 94002; 96360; 96361; 99285; A9270; C9113; G0378; J2704; J7050; J7120; P9016; U0003; U0005

== ENCOUNTER 2022-05-06 13:38 | Outpatient (CLI) | payer MEDICARE, SELFPAY ==
--- NOTE | ~2022-05-06 | MM_ITS ---
EXAMINATION: MM screening est[facility] BI w [facility] HISTORY: Screening TECHNIQUE: Craniocaudal and mediolateral oblique 3-D tomosynthesis images were obtained and synthetic 2-D images were generated. CAD analysis was submitted and interpreted. COMPARISON: Comparison to multiple prior studies sequentially, with oldest reviewed study dated 07/2015. BREAST PARENCHYMAL COMPOSITION: Breast composed of scattered areas of fibroglandular density FINDINGS: There is no evidence of suspicious mass, calcification, or architectural distortion to sugg est malignancy in either breast. There has been no suspicious interval change. IMPRESSION: 1. No mammographic evidence of malignancy. 2. Recommend routine screening mammography in one year. BI-RADS Category 1: Negative Reviewed, dictated and finalized at location A. TAL FORENSIC EXAMINER
== END 2022-05-06 13:39 | disposition home or self-care (01) ==
PROVIDERS: PCP Physician Assistant; Visit Provider Physician Assistant
DX: Z12.31 Encounter for screening mammogram for malignant neoplasm of breast (principal)
CPT/HCPCS: 77063; 77067

== ENCOUNTER 2022-05-11 13:34 | Outpatient (CLI) | payer MEDICARE, SELFPAY ==
--- NOTE | ~2022-05-11 | US_ITS ---
EXAMINATION: US thyroid DATE: 05/11/2022 14:23 INDICATION: Thyroid nodule. TECHNIQUE: Multiple ultrasound images of the thyroid were obtained. COMPARISON: None. FINDINGS: The right thyroid lobe measures 5.1 x 1.6 x 1.7 cm. The left thyroid lobe measures 5.1 x 2.4 x 2.8 c m. In the right thyroid lobe, there is a 4 mm nodule. In the right thyroid lobe, there is a 1.5 cm m ixed cystic and solid, hypoechoic, wider than tall nodule with smooth margin without echogenic foci ( TI-RADS TR3). In the left thyroid lobe, there is a 2.1 cm solid, hypoechoic, taller than wide nodule with smooth margin with punctate echogenic foci (TR5). IMPRESSION: 1. Multinodular goiter. Ultrasound-guided fine-needle aspiration of the left thyroid nodule is recomm ended. Reviewed, dictated and finalized at location A. HOUSE RECEIVING CLERK IMPRESSION: 1. Multinodular goiter. Ultrasound-guided fine-needle aspiration of the left th yroid nodule is recommended.
[2022-05-11 14:45] LABS: Hematocrit 30.7 % (37.0-47.0); Hemoglobin 8.7 g/dL (12.0-15.0)
== END 2022-05-11 13:35 | disposition home or self-care (01) ==
PROVIDERS: Physician Assistant; PCP Physician Assistant; Visit Provider Physician Assistant
DX: E04.1 Nontoxic single thyroid nodule (principal); D62 Acute posthemorrhagic anemia
CPT/HCPCS: 36415; 76536; 85014; 85018

== ENCOUNTER 2022-05-16 11:40 | Inpatient (IN) | payer MEDICARE, SELFPAY ==
[2022-05-16] VITALS (7 sets, daily range): BP systolic 95–120; BP diastolic 55–69; PULSE 87–103; RESP 16–20; TEMP 36.1–36.7; O2SAT 94–100; BMI 34.9
--- NOTE | ~2022-05-16 | CT_ITS ---
EXAMINATION: CT abdomen pelvis w con DATE: 05/17/2022 13:47 INDICATION: Left upper quadrant abdominal pain. TECHNIQUE: Computed tomography (CT) of the abdomen and pelvis was performed with 100 mL Omnipaque 350 intravenous contrast. Automated exposure control and iterative reconstruction technique were employe d. The dose-length product was 1360.94 mGy-cm. COMPARISON: CT abdomen and pelvis 07/25/2005 FINDINGS: The visualized portions of the lung bases demonstrate mild atelectasis. There is septal thi ckening bilaterally, consistent with mild pulmonary edema. There are small pleural effusions. There i s left atrial enlargement of the heart. There is a small pericardial effusion. There is an 11 mm cyst in the liver. There are gallstones in the gallbladder, which is normal in size. There is mild spleno megaly. The pancreas and adrenal glands are normal. There is mild atrophy of right kidney and moderat e atrophy of left kidney. There are cysts in the kidneys measuring up to 2.7 cm on the right. There i s a 2.0 cm mass of right kidney containing fat, consistent with an angiomyolipoma. There are no dilat ed loops of bowel. There are changes of appendectomy. There are no pathologically enlarged lymph node s. There is no free intraperitoneal fluid. There is severe lumbar spondylosis and mild thoracic spond ylosis. IMPRESSION: 1. Mild pulmonary edema. 2. Small pleural effusions. 3. Left atrial enlargement of the heart. 4. Small pericardial effusion. 5. Mild splenomegaly. Reviewed, dictated and finalized at location A. TAILOR
[2022-05-16 12:16] LABS: Basophils Percent Auto 0.7 % (0.2-1.2); Eosinophils Absolute Auto 0.1 K/mm3 (0-0.3); Eosinophils Percent Auto 2.3 % (0-4.4); Hematocrit 22.8 % (37.0-47.0); Immature Granulocyte Absolute 0.05 K/mm3 (0.00-0.031); Immature Granulocyte Percent A 1.2 % (0-0.5); Lymphocytes Absolute Auto 1.36 K/mm3 (0.9-3.2); Lymphocytes Percent Auto 31.6 % (18.3-44.2); Mean Corpuscular HGB Conc 27.6 g/dl (32-36); Mean Corpuscular Hemoglobin 22.2 pg (26-34); Mean Corpuscular Volume 80.3 fl (80-100); Mean Platelet Volume 10.1 fl (7.4-10.4); Monocytes Absolute Auto 0.6 K/mm3 (0.1-0.6); Monocytes Percent Auto 13.5 % (2.6-8.5); Neutrophils Absolute Auto 2.2 K/mm3 (1.3-6.7); Neutrophils Percent Auto 50.7 % (45.5-73.1); Platelet Count Result 234 k/mm3 (150-375); Red Blood Count 2.84 M/mm3 (4.2-5.4); Red Cell Distribution Width 35.8 % (11.5-14.5); White Blood Count 4.3 K/mm3 (4.5-10.0)
--- NOTE | 2022-05-16 12:17 | ED.RECABL ---
HPI - Recheck/Abnormal Lab/Rx General Chief Complaint: Recheck/Abnormal Lab/Rx Stated Complaint: hg 6.5 Time Seen by Provider: 05/16/22 12:16 Source: patient and family History of Present Illness HPI narrative: 67 years old white female came to the emergency room because of low hemoglobin. Patient is asymptomatic. 2 weeks ago patient went to her family physician because of general weakness and not feeling well. Blood work-up at that time showed hemoglobin of 4.2, got hospitalized to [facility], Dr. Salazar, EGD and colonoscopy showed gastritis and AV malformation, cauterization, May 11 hemoglobin was 8.7, yesterday 6.5. Patient currently on iron supplement and Protonix. Patient used to be on aspirin 325, stopped and restarted again on the of this month 81 mg once a day. Today patient is asymptomatic and work-up showed hemoglobin of 6.3, patient currently on iron supplement, black stool for long time, also on baby aspirin once a day and the Protonix. MD complaint: needs IV antibiotics Related Data Home Medications Medication Instructions Recorded Confirmed allopurinol 300 mg tablet 300 mg PO DAILY 07/19/20 05/16/22 atorvastatin 40 mg tablet 40 mg PO DAILY 07/19/20 05/16/22 cholecalciferol (vitamin D3) 125 125 mcg PO DAILY 07/19/20 05/16/22 mcg (5,000 unit) tablet (Vitamin D3) cyanocobalamin (vitamin B-12) 500 500 mcg PO DAILY 07/19/20 05/16/22 mcg tablet (Vitamin B-12) fluticasone propionate 50 2 spray intranasal DAILY PRN Sinus 07/19/20 05/16/22 mcg/actuation nasal Symptoms spray,suspension levothyroxine 50 mcg tablet 50 mcg PO DAILY 07/19/20 05/16/22 olmesartan 20 1 tablet PO DAILY 07/19/20 05/16/22 mg-hydrochlorothiazide 12.5 mg tablet semaglutide 1 mg/dose (2 mg/1.5 1 mg subcut WEEKLY 07/19/20 05/16/22 mL) subcutaneous pen injector (Ozempic) escitalopram oxalate 10 mg tablet 10 mg PO DAILY 05/03/22 05/16/22 icosapent ethyl 1 gram capsule 2 g PO BID 05/03/22 05/16/22 (Vascepa) Allergies Allergy/AdvReac Type Severity Reaction Status Date / Time Penicillins Allergy Intermediate Hives Verified 05/16/22 11:40 Sulfa (Sulfonamide Allergy Mild Other Verified 05/18/22 11:19 Antibiotics) Review of Systems Review of Systems: All systems reviewed & are unremarkable except as noted in HPI and below [facility] Past Medical History Medical History Abnormal cardiac CT angiography (07/2021) Acute blood loss anemia AVM (arteriovenous malformation) of colon Chronic kidney disease, stage 3 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 Depression with anxiety Elevated LDH Gout Hyperlipidemia Hypertension Hypothyroidism Neuropathy Obstructive sleep apnea on CPAP Transient ischemic attack (2016) Type 2 diabetes mellitus Surgical History Surgical History History of appendectomy (2005) History of x3 History of cardiac catheterization (08/08/21) Right coronary dominant circulation with no significant coronary artery stenosis save for about 80% stenosis of a small 2nd septal branch of the LAD. Normal LV systolic function. History of colonoscopy (09/04/20) Per Dr. Hdz. Notable findings include benign colon polyps, arteriovenous malformations, and internal hemorrhoids. History of hysterectomy (2000) History of incision and drainage (2006) Perirectal abscess. History of tonsillectomy Family History Family History Mother Diabetes mellitus Heart problem Father Heart problem Diabetes mellitus Sibling ALS (amyotrophic lateral sclerosis) Social History Social History Social History: She is retired from [employer] and has 3 children. She is and her son Joey lives with her. Surrogate medical decision maker: Joey Cortez, son. She is lifelong
[2022-05-16 12:24] LABS: Alanine Aminotransferase 49 U/L (6-35); Albumin Level 3.8 g/dL (3.5-5.1); Alkaline Phosphatase 141 U/L (38-126); Anion Gap 8 mmol/L (8-16); Aspartate Amino Transferase 65 U/L (14-36); Bilirubin,Total 1.3 mg/dL (0.2-1.3); Blood Urea Nitrogen 24 mg/dL (7-17); Calcium 8.9 mg/dL (8.4-10.2); Carbon Dioxide 23 mmol/L (22-30); Chloride 104 mmol/L (98-107); Estimated CRCL calculation 59 ml/min; Estimated Glomerular Filt Rate 55; Glucose 109 mg/dL (65-110); Potassium 4.1 mmol/L (3.4-5.0); Sodium 135 mmol/L (137-145)
[2022-05-16 12:27] LABS: Partial Thromboplastin Time 31.5 SECONDS (22.3-36.8); Prothrombin Time 13.1 Seconds (11.1-14.7)
[2022-05-16 12:32] LABS: Hemoglobin 6.3 g/dL (12.0-15.0)
[2022-05-16] MEDS: PANTOPRAZOLE SODIUM IV 40 MG VIAL IV PUSH ×2 (12:50→20:39)
--- NOTE | 2022-05-16 12:54 | PM.IMHP ---
H&P: HPI History of Present Illness Date/Time: 05/16/22 12:54 Chief Complaint: Abnormal labs Narrative: This is a 67-year-old female patient who has a history of AV malformations. The patient came to the emergency room due to low hemoglobin. She is asymptomatic. Two weeks ago the patient went to primary care doctor for generalized weakness and was not feeling very well. The patient was discharged from here on 05/04/2022 with a hemoglobin of 4. She was given 4 units of packed red blood cells at that time and was symptomatic. The patient had an EGD which showed gastritis without any evidence of active bleeding a colonoscopy that revealed large localized AVM. The patient was placed on Protonix 40 mg daily and was told to avoid NSAIDs. Patient held the aspirin for 1 week and then resume did on 05/11. She was also started on p.o. iron supplement. Her H&H 1121 was 8.7 and 30.7. Today her H&H is 6.[address] Murphy has been consulted and will be transfused with 2 units of packed red blood cells. The patient was started on IV fluids, IV Protonix, Zofran, and IV Tylenol. The patient is being admitted to inpatient status on the date of service of 05/16/2022 Review of Systems Review of Systems: See HPI All systems reviewed & are unremarkable except as noted in HPI and below Constitutional: Constitutional: Reports as per HPI and Reports no additional constitutional complaints Eyes: Eyes: Reports as per HPI and Reports no additional eye complaints ENT: Reports system reviewed and no additional complaints, except as documented and Reports Normal hearing present Cardiovascular: Cardiovascular: Reports no additional cardiovascular complaints Respiratory: Respiratory: Reports no additional respiratory complaints and Reports no additional respiratory complaints Gastrointestinal: Gastrointestinal: Reports as per HPI and Reports no additional gastrointestinal complaints Musculoskeletal: Musculoskeletal: Reports no additional musculoskeletal complaints Integumentary/Breasts: Skin/Breast: Reports system reviewed and no additional complaints, except as docu and Reports as per HPI Neurologic: Reports system reviewed and no additional complaints, except as documented, Reports as per HPI and Reports Normal hearing present Psychiatric: Psychiatric: Reports no additional psychiatric complaints and Reports as per HPI Endocrine: Endocrine: Reports no additional endocrine complaints Hematologic/Lymphatic: Hematologic/Lymphatic: Reports no additional hematologic/lymphatic complaints Allergic/Immunologic: Allergic/Immunologic: Reports no additional allergic/immunologic complaints [facility] Past Medical History Medical History (Updated 05/16/22 @ 16:30 by Naty Irving NP) Abnormal cardiac CT angiography (07/2021) Acute blood loss anemia AVM (arteriovenous malformation) of colon Chronic kidney disease, stage 3 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 Depression with anxiety Gout Hyperlipidemia Hypertension Hypothyroidism Neuropathy Obstructive sleep apnea on CPAP Transient ischemic attack (2016) Type 2 diabetes mellitus Surgical History Surgical History History of appendectomy (2005) History of x3 History of cardiac catheterization (08/08/21) Right coronary dominant circulation with no significant coronary artery stenosis save for about 80% stenosis of a small 2nd septal branch of the LAD. Normal LV systolic function. History of colonoscopy (09/04/20) Per Dr. Hdz. Notable findings include benign colon polyps, arteriovenous malformations, and internal hemorrhoids. History of hysterectomy (2000) History of incision and drainage (2006) Perirectal abscess. History of tonsillectomy Family History Family History Mother Diabetes mellitus Heart problem Father Heart problem Diabetes mellit
[2022-05-16 13:02] LABS: Hypochromasia 2+ (NORMAL); Platelet Estimate Adequate (Adequate)
[2022-05-16 13:03] LABS: Anisocytosis 2+ (NORMAL); Macrocytosis 1+ (NORMAL); Poikilocytosis 1+ (NORMAL); Target Cells 2+ (NORMAL)
[2022-05-16 13:04] LABS: Acanthocytes 1+ (NORMAL); Ovalocytes 1+ (NORMAL); Schistocytes 1+ (NORMAL)
--- NOTE | 2022-05-16 13:50 | PC.NURSE ---
This patient, Iveth Cortez, was admitted to 2 Medical Room 259-01. Patient/family oriented to hospital policies and general routines including ID bracelet, bed and alarms, visiting hours, pain management, procedures, bathroom and other care routines, personal items, smoking policy, room service/diet, and visiting hours. Information on how to activate the Rapid Response Team has been discussed. Patient/Family are encouraged to report perceived risks to care and to ask questions if they do not understand what they are told or what they should do.
[2022-05-16 14:47] LABS: Influenza A QL RT-PCR Negative (Negative); Influenza B QL RT-PCR Negative (Negative); SARS-CoV-2 RNA PCR Negative
[2022-05-16 17:10] LABS: Glucose Point of Care 104 mg/dl (65-105)
[2022-05-16] MEDS: OMEGA 3 POLYUNSAT FATTY ACIDS 1 GM CAP 2 GM PO (17:28)
--- NOTE | 2022-05-16 19:49 | PC.NURSE ---
RN called blood bank for update on status of blood as it has not been ready for approximately 7 hours at this time. orthodontist assistant said they send out the blood with antibodies and it is not ready as of now. She said she would call up to the floor whenever it was here.
[2022-05-16] MEDS: WATER FOR IRRIGATION, STERILE 1,000 ML BOTTLE 1000 ML (19:53)
[2022-05-16 19:55] LABS: Glucose Point of Care 96 mg/dl (65-105)
[2022-05-17] VITALS (21 sets, daily range): BP systolic 104–125; BP diastolic 51–86; PULSE 85–99; RESP 16–20; TEMP 36.3–36.7; O2SAT 93–99
[2022-05-17] MEDS: SODIUM CHLORIDE 0.9% IV 250 ML 30 ML IV CONT (01:39)
[2022-05-17] MEDS: LEVOTHYROXINE SODIUM 50 MCG TABLET PO (06:31)
[2022-05-17 08:42] LABS: Glucose Point of Care 105 mg/dl (65-105)
[2022-05-17] MEDS: FERROUS SULFATE 324 MG TABLET PO (08:50)
[2022-05-17] MEDS: OMEGA 3 POLYUNSAT FATTY ACIDS 1 GM CAP 2 GM PO ×2 (08:51→18:04)
[2022-05-17] MEDS: allopurinoL 300 MG TABLET PO (08:51)
[2022-05-17] MEDS: CYANOCOBALAMIN 500 MCG TABLET PO (08:52)
[2022-05-17] MEDS: CHOLECALCIFEROL 1,000 UNITS TABLET 5000 UNITS PO (08:52)
[2022-05-17] MEDS: ATORVASTATIN 40 MG TABLET PO (08:52)
[2022-05-17] MEDS: ESCITALOPRAM OXALATE 10 MG TABLET PO (08:53)
[2022-05-17] MEDS: PANTOPRAZOLE SODIUM IV 40 MG VIAL IV PUSH ×2 (08:53→20:23)
--- NOTE | 2022-05-17 09:48 | WPDGICN ---
Assessment and Plan Assessment and plan (1) Anemia: Code(s): D64.9 - Anemia, unspecified Status: Acute Assessment and Plan: there is no obvious gastrointestinal blood loss. She did have an AVM cauterized Less than 2 weeks ago. I do not think there is a point in repeating a colonoscopy again with no evidence of bleeding. (2) Chronic kidney disease, stage 3: Code(s): N18.30 - Chronic kidney disease, stage 3 unspecified Status: Acute Assessment and Plan: obviously, renal disease could contribute to her anemia, although her blood count seem to drop abruptly. (3) AVM (arteriovenous malformation) of colon: Code(s): K55.20 - Angiodysplasia of colon without hemorrhage Status: Acute Assessment and Plan: This was treated by Dr. Salazar less than 2 weeks ago. She is to have an outpatient capsule endoscopy study of the small bowel in the near future, pending authorization. (4) Left upper quadrant abdominal pain: Code(s): R10.12 - Left upper quadrant pain Status: Acute Assessment and Plan: She was mildly tender left upper quadrant states that she has been uncomfortable there the last few days. I am considered about possible hypersplenism. Will order CT scan of abdomen (5) Constipation: Code(s): K59.00 - Constipation, unspecified Status: Acute Assessment and Plan: no bowel movement for 3 days. Her stools have been the same color since she was discharged, obviously dark because she is on iron. She uses Dulcolax suppositories from time to time at home. I will give her Dulcolax tablets and start her on MiraLax. (6) Type 2 diabetes mellitus: Code(s): E11.9 - Type 2 diabetes mellitus without complications Status: Acute Assessment and Plan: I am going to start her on diabetic diet today GI Consult Note Consult date/time: 05/17/22 09:48 HPI: Iveth Cortez is a 67 year old female who was referred to the emergency room when she was found to be anemic with a hemoglobin of 6.3. She had been hospitalized just 2 weeks ago and at that time hemoglobin was 4. She was transfused then with 4 units of blood. She was evaluated by Dr. Salazar who performed an EGD. That only showed some gastritis. A colonoscopy revealed a large AVM in his cecum. That was treated with cautery. He the patient was then going to be having an outpatient capsule endoscopy and I believe that we are still awaiting authorization from her insurance company for that. She has dark stools but takes iron. She has not seen any blood in her stools. She has not in fact had a bowel movement now for 3 days. She denies any abdominal pain nausea vomiting dysphagia heartburn or other new gastrointestinal symptoms. She does however have a discomfort in the area of the left flank. 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 Depression with anxiety Gout Hyperlipidemia Hypertension Hypothyroidism Neuropathy Obstructive sleep apnea on CPAP Transient ischemic attack (2016) Type 2 diabetes mellitus Surgical History Surgical History History of appendectomy (2005) History of x3 History of cardiac catheterization (08/08/21) Right coronary dominant circulation with no significant coronary artery stenosis save for about 80% stenosis of a small 2nd septal branch of the LAD. Normal LV systolic function. History of colonoscopy (09/04/20) Per Dr. Hdz. Notable findings include benign colon polyps, arteriovenous malformations, and interna
[2022-05-17 10:11] LABS: Basophils Percent Auto 0.7 % (0.2-1.2); Eosinophils Absolute Auto 0.2 K/mm3 (0-0.3); Eosinophils Percent Auto 2.9 % (0-4.4); Hematocrit 26.4 % (37.0-47.0); Hemoglobin 7.8 g/dL (12.0-15.0); Immature Granulocyte Absolute 0.08 K/mm3 (0.00-0.031); Immature Granulocyte Percent A 1.4 % (0-0.5); Lymphocytes Percent Auto 25.4 % (18.3-44.2); Mean Corpuscular HGB Conc 29.5 g/dl (32-36); Mean Corpuscular Hemoglobin 23.6 pg (26-34); Mean Corpuscular Volume 79.8 fl (80-100); Mean Platelet Volume 8.9 fl (7.4-10.4); Monocytes Absolute Auto 0.6 K/mm3 (0.1-0.6); Neutrophils Absolute Auto 3.3 K/mm3 (1.3-6.7); Neutrophils Percent Auto 59.6 % (45.5-73.1); Platelet Count Result 203 k/mm3 (150-375); Red Blood Count 3.31 M/mm3 (4.2-5.4); Red Cell Distribution Width 32.1 % (11.5-14.5); White Blood Count 5.5 K/mm3 (4.5-10.0)
[2022-05-17 10:26] LABS: Alanine Aminotransferase 40 U/L (6-35); Albumin Level 3.6 g/dL (3.5-5.1); Alkaline Phosphatase 130 U/L (38-126); Anion Gap 8 mmol/L (8-16); Aspartate Amino Transferase 41 U/L (14-36); Blood Urea Nitrogen 16 mg/dL (7-17); Calcium 8.5 mg/dL (8.4-10.2); Carbon Dioxide 23 mmol/L (22-30); Chloride 104 mmol/L (98-107); Estimated CRCL calculation 64 ml/min; Estimated Glomerular Filt Rate > 60; Glucose 127 mg/dL (65-110); Lactate Dehydrogenase 677 U/L (120-246); Magnesium 2.1 mg/dL (1.6-2.3); Potassium 3.9 mmol/L (3.4-5.0); Sodium 135 mmol/L (137-145)
[2022-05-17 12:52] LABS: Glucose Point of Care 91 mg/dl (65-105)
[2022-05-17 13:38] LABS: Anisocytosis 1+ (NORMAL); Hypochromasia 2+ (NORMAL); Platelet Estimate Adequate (Adequate); Poikilocytosis 1+ (NORMAL)
[2022-05-17 13:39] LABS: Macrocytosis 1+ (NORMAL); Schistocytes 1+ (NORMAL)
[2022-05-17 13:41] LABS: Ovalocytes 1+ (NORMAL)
[2022-05-17] MEDS: BISACODYL 5 MG TABLET EC 10 MG PO (14:00)
--- NOTE | 2022-05-17 14:54 | PM.IMPN ---
Progress Note: A&P Assessment and Plan (1) Anemia: Code(s): D64.9 - Anemia, unspecified Status: Acute Assessment and Plan: Hemoglobin 6.3 on arrival Transfused 1 unit pRBCs with stabilization of Hgb Monitor H&H Q 6 hours to ensure remaining stable No active bleeding noted. No signs/symptoms to suggest GI bleed Continue PO iron supplement Aspirin on hold Will check UA given reports of rust colored urine LDH and total bilirubin elevated. Haptoglobin pending. May be related to hemolysis CT a/p pending to evaluate spleen Consider hematology consultation based on results. (2) GI bleed: Code(s): K92.2 - Gastrointestinal hemorrhage, unspecified Status: Acute Assessment and Plan: Recent admission for anemia found to have AVM which was cauterized and gastritis No active GI bleeding noted Appreciate GI consultation Continue Protonix Awaiting insurance authorization for outpatient capsule endoscopy See plan as above (3) Chronic kidney disease, stage 3: Code(s): N18.30 - Chronic kidney disease, stage 3 unspecified Status: Acute Assessment and Plan: Renal function is consistent with baseline Monitor BMP (4) Hypertension: Code(s): I10 - Essential (primary) hypertension Status: Acute Assessment and Plan: Blood pressure is stable. Last BP 124/74 Resume home olmesartan-HCTZ (5) Hypothyroidism: Code(s): E03.9 - Hypothyroidism, unspecified Status: Acute Assessment and Plan: TSH is within normal limits Continue levothyroxine (6) Type 2 diabetes mellitus: Code(s): E11.9 - Type 2 diabetes mellitus without complications Status: Acute Assessment and Plan: A1c is 5.5 Sugars are well controlled Continue Accu-Cheks and sliding scale insulin (7) Obstructive sleep apnea on CPAP: Code(s): G47.33 - Obstructive sleep apnea (adult) (pediatric); Z99.89 - Dependence on other enabling machines and devices Status: Acute Assessment and Plan: Continue home CPAP Subjective Date/time seen: 05/17/22 14:54 Interval history: Date of service: 05/17/2022 Iveth Cortez is a 66 year old female with a history of AVM of colon, CKD, hypertension, hyperlipidemia, hypothyroidism, WAYLON on CPAP, TIA, type 2 diabetes mellitus, known to me from recent admission 2 weeks ago for profound anemia felt to be secondary to GI bleeding who is seen in follow-up again for anemia. Patient reports that she had her blood drawn on Wednesday, 05/11 per her discharge orders and hemoglobin at that time was 8.7. She was actually feeling really good at home and even just 1 day prior to admission she mentioned to her daughter that she was feeling better than she had in a while. She had gotten her energy back and was not feeling short of breath or having palpitations any longer. She did note that she had dark, siddhartha colored urine and dark stools. She attributed both the dark urine and dark stools to her oral iron supplement. She does note that her urine has been clear for the past 3 days. She denies dysuria, urgency, or frequency. She does have some left upper quadrant/flank discomfort that she has noticed intermittently for a couple of days, states it is worse when she coughs or laughs. Denies hematemesis or hemoptysis. She has intermittent dry cough that has been ongoing for over a week. She denies nausea, vomiting, chest pain. No shortness of breath or palpitations. Review of Systems Review of Systems: All systems reviewed & are unremarkable except as noted in HPI and below Exam Narrative: General:? Well-nourished, well-appearing 67-year-old female, sitting up in bed, comfortable, NARD Neuro: awake, alert and oriented x4, speech clear, no focal neuro deficits noted HEENMT:? normocephalic, atraumatic, EOMI, sclerae anicteric Respiratory: clear to auscultation bilaterally, nonlabored breathing Card
[2022-05-17 16:51] LABS: Hemoglobin 8.2 g/dL (12.0-15.0)
[2022-05-17 17:39] LABS: Glucose Point of Care 105 mg/dl (65-105)
[2022-05-17 19:19] LABS: Appearance Urine Clear (Clear); Bilirubin Urine Negative (Negative); Blood Urine Negative (Negative); Color Urine Yellow (Yellow); Glucose Urine UA Negative (Negative); Ketones Urine Negative (Negative); Leukocyte Esterase Ur Negative LEU/UL (Negative); Nitrate Urine Negative (Negative); Protein Urine Negative (Negative); Urobilinogen Urine 0.2 mg/dL (<2.0); pH Urine 6.5 (5.0-9.0)
[2022-05-17 19:21] LABS: Add Urine Microscopic? NO
[2022-05-17 19:49] LABS: Immunochemical Fecal Occult Bl Negative (N)
[2022-05-17 19:50] LABS: IFOB Positive Control Positive
[2022-05-17] MEDS: guaiFENesin 12 HR 600 MG TABCR PO (20:23)
[2022-05-17 20:59] LABS: Glucose Point of Care 135 mg/dl (65-105)
[2022-05-17 22:34] LABS: Hematocrit 26.5 % (37.0-47.0)
[2022-05-18 03:51] VITALS: BP 115/74; PULSE 91; RESP 18; TEMP 36.9; O2SAT 98
[2022-05-18] MEDS: LEVOTHYROXINE SODIUM 50 MCG TABLET PO (05:15)
[2022-05-18 05:48] LABS: Basophils Percent Auto 0.4 % (0.2-1.2); Eosinophils Absolute Auto 0.2 K/mm3 (0-0.3); Eosinophils Percent Auto 3.6 % (0-4.4); Hematocrit 28.1 % (37.0-47.0); Hemoglobin 8.2 g/dL (12.0-15.0); Immature Granulocyte Absolute 0.06 K/mm3 (0.00-0.031); Immature Granulocyte Percent A 1.3 % (0-0.5); Lymphocytes Absolute Auto 1.43 K/mm3 (0.9-3.2); Lymphocytes Percent Auto 30.6 % (18.3-44.2); Mean Corpuscular HGB Conc 29.2 g/dl (32-36); Mean Corpuscular Hemoglobin 24.2 pg (26-34); Mean Corpuscular Volume 82.9 fl (80-100); Mean Platelet Volume 8.8 fl (7.4-10.4); Monocytes Absolute Auto 0.5 K/mm3 (0.1-0.6); Monocytes Percent Auto 10.3 % (2.6-8.5); Neutrophils Absolute Auto 2.5 K/mm3 (1.3-6.7); Neutrophils Percent Auto 53.8 % (45.5-73.1); Platelet Count Result 209 k/mm3 (150-375); Red Blood Count 3.39 M/mm3 (4.2-5.4); Red Cell Distribution Width 32.5 % (11.5-14.5); White Blood Count 4.7 K/mm3 (4.5-10.0)
[2022-05-18 06:02] LABS: Anion Gap 5 mmol/L (8-16); Blood Urea Nitrogen 13 mg/dL (7-17); Calcium 8.7 mg/dL (8.4-10.2); Carbon Dioxide 26 mmol/L (22-30); Chloride 106 mmol/L (98-107); Estimated CRCL calculation 53 ml/min; Estimated Glomerular Filt Rate 49; Glucose 103 mg/dL (65-110); Potassium 4.6 mmol/L (3.4-5.0); Sodium 137 mmol/L (137-145)
[2022-05-18 06:48] LABS: Anisocytosis 2+ (NORMAL); Hypochromasia 2+ (NORMAL); Platelet Estimate Adequate (Adequate); Target Cells 1+ (NORMAL)
[2022-05-18 06:49] LABS: Tear Drop Cells 1+ (NORMAL)
[2022-05-18 06:50] LABS: Acanthocytes 1+ (NORMAL); Ovalocytes 2+ (NORMAL)
[2022-05-18] MEDS: CHOLECALCIFEROL 1,000 UNITS TABLET 5000 UNITS PO (08:05)
[2022-05-18] MEDS: OLMESARTAN MEDOXOMIL 20 MG TABLET PO (08:05)
[2022-05-18] MEDS: ATORVASTATIN 40 MG TABLET PO (08:05)
[2022-05-18] MEDS: guaiFENesin 12 HR 600 MG TABCR PO ×2 (08:05→20:10)
[2022-05-18] MEDS: FERROUS SULFATE 324 MG TABLET PO (08:05)
[2022-05-18] MEDS: allopurinoL 300 MG TABLET PO (08:05)
[2022-05-18] MEDS: OMEGA 3 POLYUNSAT FATTY ACIDS 1 GM CAP 2 GM PO ×2 (08:05→17:16)
[2022-05-18] MEDS: CYANOCOBALAMIN 500 MCG TABLET PO (08:05)
[2022-05-18] MEDS: hydroCHLOROthiazide 12.5 MG CAPSULE PO (08:05)
[2022-05-18] MEDS: ESCITALOPRAM OXALATE 10 MG TABLET PO (08:05)
[2022-05-18 09:07] LABS: Glucose Point of Care 103 mg/dl (65-105)
[2022-05-18 10:08] VITALS: BP 109/69; PULSE 97; RESP 18; TEMP 36.6; O2SAT 98
[2022-05-18] MEDS: PANTOPRAZOLE 40 MG TABLET PO ×2 (12:21→20:10)
[2022-05-18 12:27] LABS: Glucose Point of Care 104 mg/dl (65-105)
--- NOTE | 2022-05-18 13:23 | WPDGIPROGNO ---
Progress Note: A&P Assessment and Plan (1) Acute blood loss anemia: Code(s): D62 - Acute posthemorrhagic anemia Status: Acute Assessment and Plan: fobt negative and she has not seen signs of GIB noted elevated ldh and bili ? hemolysis hematology to see we can complete work up as outpatient with small bowel capsule endoscopy but no need to repeat scopes now will follow from afar (2) AVM (arteriovenous malformation) of colon: Code(s): K55.20 - Angiodysplasia of colon without hemorrhage Status: Acute Assessment and Plan: treated several days ago (3) Constipation: Code(s): K59.00 - Constipation, unspecified Status: Acute (4) Chronic kidney disease, stage 3: Code(s): N18.30 - Chronic kidney disease, stage 3 unspecified Status: Acute Assessment and Plan: stable (5) Elevated LDH: Code(s): R74.02 - Elevation of levels of lactic acid dehydrogenase [LDH] Status: Acute Assessment and Plan: work up pending, ? hemolysis Subjective Date/time seen: 05/18/22 13:23 Interval history: she is doing well, no overt gib, no abdominal discomfort, she is eating. Review of Systems Review of Systems: All systems reviewed & are unremarkable except as noted in HPI and below Exam Const: General: comfortable and no acute distress HENMT: Face/Nose/Sinus: Normal nares present Eyes: General: appearance normal, both eyes and all related structures Neck: Neck: no JVD Resp: Auscultation: clear to auscultation bilaterally Cardio: Rate: regular rate Rhythm: regular rhythm GI: Inspection: non-distended GI Palp: Yes Soft to palpation Auscultation: normal bowel sounds Skin: General skin exam: normal color Neuro: General: gait normal Speech: normal speech Extrem: General: normal to inspection Psych: Mental Status: mental status grossly normal Objective Data Vital Signs Vital Signs: Vital Signs - 24 hr 05/17/22 15:10 05/17/22 16:00 05/17/22 20:00 Temperature 98.1 F 98.1 F Pulse Rate 95 91 Respiratory Rate 18 18 Blood Pressure 120/70 120/66 Pulse Oximetry 98 97 96 Oxygen Delivery Room Air 05/17/22 23:44 05/17/22 23:30 05/18/22 01:29 Temperature 97.6 F Pulse Rate 89 85 Respiratory Rate 17 Blood Pressure 109/56 L Pulse Oximetry 95 99 Oxygen Delivery CPAP CPAP 05/18/22 03:51 05/18/22 10:08 Temperature 98.4 F 97.8 F Pulse Rate 91 97 Respiratory Rate 18 18 Blood Pressure 115/74 109/69 Pulse Oximetry 98 98 Oxygen Delivery Intake/Output Intake/Output: Intake & Output 05/15/22 05/16/22 05/17/22 05/18/22 23:59 23:59 23:59 23:59 Intake Total 1000 4531 690 Output Total 800 2800 1000 Balance 200 1731 -310 Meds/Results Medications: Active Medications Generic Name Dose Route Start Last Admin Trade Name Freq PRN Reason Stop Dose Admin Allopurinol 300 mg 05/17/22 09:00 05/18/22 08:05 Allopurinol 300 Mg Tablet PO 300 mg DAILY PRIYA Administration Atorvastatin Calcium 40 mg 05/17/22 09:00 05/18/22 08:05 Atorvastatin 40 Mg Tablet PO 40 mg DAILY PRIYA Administration Cyanocobalamin 500 mcg 05/17/22 09:00 05/18/22 08:05 Cyanocobalamin 500 Mcg Tablet PO 500 mcg DAILY PRIYA Administration Dextrose 12.5 gm 05/16/22 14:27 Dextrose 50% 25 Gm/50 Ml Syringe IV PUSH PRN PRN Hypoglycemia Protocol Escitalopram Oxalate 10 mg 05/17/22 09:00 05/18/22 08:05 Escitalopram Oxalate 10 Mg Tablet PO 10 mg DAILY PRIYA Administration Ferrous Sulfate 324 mg 05/17/22 08:00 05/18/22 08:05 Ferrous Sulfate 324 Mg Tablet PO 324 mg DAILY@0800 PRIYA Administration Fish Oil 2 gm 05/16/22 17:00 05/18/22 08:05 [place] 3 Polyunsat Fatty Acids 1 Gm Cap PO 2 gm BIDWM PRIYA Administration Fluticasone Propionate 2 spray 05/16/22 16:26 Fluticasone Propionate 0.05% Na Spr 16 Gm Btl (*Bkc) NASAL DAILY PRN Sinus Symptoms Glucagon 1 mg
[2022-05-18 14:18] VITALS: BP 114/63; PULSE 94; RESP 16; TEMP 36.5; O2SAT 100
--- NOTE | 2022-05-18 14:27 | PM.IMPN ---
Progress Note: A&P Assessment and Plan (1) Anemia: Code(s): D64.9 - Anemia, unspecified Status: Acute Assessment and Plan: Hemoglobin 6.3 on arrival Transfused 1 unit pRBCs with stabilization of Hgb Hemoglobin remaining stable today at 8.2 No active bleeding noted. No signs/symptoms to suggest GI bleed UA without blood LDH and total bilirubin elevated. Haptoglobin pending. May be related to hemolysis Aspirin on hold Appreciate hematology consultation Will proceed with IV iron infusion 500 mg today and 500 mg tomorrow (2) GI bleed: Code(s): K92.2 - Gastrointestinal hemorrhage, unspecified Status: Acute Assessment and Plan: Recent admission for anemia found to have AVM which was cauterized and gastritis No active GI bleeding noted Appreciate GI consultation Continue Protonix Awaiting insurance authorization for outpatient capsule endoscopy See plan as above (3) Chronic kidney disease, stage 3: Code(s): N18.30 - Chronic kidney disease, stage 3 unspecified Status: Acute Assessment and Plan: Renal function is consistent with baseline Monitor BMP (4) Hypertension: Code(s): I10 - Essential (primary) hypertension Status: Acute Assessment and Plan: Blood pressure is stable. continue home olmesartan-HCTZ (5) Hypothyroidism: Code(s): E03.9 - Hypothyroidism, unspecified Status: Acute Assessment and Plan: TSH is within normal limits Continue levothyroxine (6) Type 2 diabetes mellitus: Code(s): E11.9 - Type 2 diabetes mellitus without complications Status: Acute Assessment and Plan: A1c is 5.5 Sugars are well controlled. No need for further monitoring (7) Obstructive sleep apnea on CPAP: Code(s): G47.33 - Obstructive sleep apnea (adult) (pediatric); Z99.89 - Dependence on other enabling machines and devices Status: Acute Assessment and Plan: Continue home CPAP Subjective Date/time seen: 05/18/22 14:27 Interval history: Date of service: 05/18/2022 Iveth Cortez is a 66 year old female with a history of AVM of colon, CKD, hypertension, hyperlipidemia, hypothyroidism, WAYLON on CPAP, TIA, type 2 diabetes mellitus, known to me from recent admission 2 weeks ago for profound anemia felt to be secondary to GI bleeding who is seen in follow-up again for anemia. she is feeling well today, states she is essentially feeling back to her normal self. She does still have some left upper quadrant discomfort which she notices more if she laughs or coughs. She had a bowel movement yesterday. Denies any blood in her stool. Denies abdominal pain, nausea, vomiting. Reports her urine is clear. Denies hematuria. Denies shortness of breath or palpitations. Has occasional cough, states this improved with Mucinex Review of Systems Review of Systems: All systems reviewed & are unremarkable except as noted in HPI and below Exam Narrative: General:? Well-nourished, well-appearing 67-year-old female, sitting up in a chair by the bedside, comfortable, NARD Neuro: awake, alert and oriented x4, speech clear, no focal neuro deficits noted HEENMT:? normocephalic, atraumatic, EOMI, sclerae anicteric Respiratory: clear to auscultation bilaterally, nonlabored breathing Cardio: regular rate, regular rhythm with S1-S2 Abdomen: nondistended, normoactive bowel sounds, soft, nontender to palpation Extremities: no edema, erythema, or tenderness to palpation, DP pulses 2+ bilaterally Skin: no rashes or lesions, warm and dry Psych: appropriate mood and affect, judgment and insight intact Objective Data Vital Signs Vital Signs: Vital Signs - 24 hr 05/17/22 15:10 05/17/22 16:00 05/17/22 20:00 Temperature 98.1 F 98.1 F Pulse Rate 95 91 Respiratory Rate 18 18 Blood Pressure 120/70 120/66 Pulse Oximetry 98 97 96 Oxygen Delivery Room Air 05/17/22 23:44 05/17/22
[2022-05-18] MEDS: IRON SUCROSE COMPLEX 500 MG in SODIUM CHLORIDE 0.9% IV 250 ML 78.57 MG IVPB (14:30)
--- NOTE | 2022-05-18 17:58 | PDONCCN ---
HPI - Date of Consult Date/Time: 05/18/22 17:58 Requesting Physician: Maty Lewis PA-C Primary Care Provider: Madeline Marcos, PA - Consult Narrative Reason for consult: Multifactorial anemia Narrative: Iveth Cortez is a 67 year old female with history of AV malformation and anemia came into the hospital with abnormal labs when labs done from May 04 showed hemoglobin of 4. She received 4 units of packed red blood cell. She was quite symptomatic with tiredness and fatigue. Her previous EGD showed gastritis without evidence of active bleeding and the colonoscopy revealed large localized AVM. She was on PPI with Protonix 40 mg daily. Other labs showed slightly elevated total bilirubin but indirect bilirubin was normal at 0.6. Vitamin B12 was normal. LDH was elevated at 677. Ángel test was negative. CT scan was performed that showed mild splenomegaly with mild pulmonary edema and small pleural effusion. 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 Depression with anxiety Elevated LDH Gout Hyperlipidemia Hypertension Hypothyroidism Neuropathy Obstructive sleep apnea on CPAP Transient ischemic attack Onset Date: 2016 Type 2 diabetes mellitus Surgical History: Surgical History (Last Reviewed 05/17/22 @ 10:20 by Andrez Murphy MD) History of appendectomy Onset Date: 2005 History of x3 History of cardiac catheterization Onset Date: 08/08/21 Right coronary dominant circulation with no significant coronary artery stenosis save for about 80% stenosis of a small 2nd septal branch of the LAD. Normal LV systolic function. History of colonoscopy Onset Date: 09/04/[address] Hdz. Notable findings include benign colon polyps, arteriovenous malformations, and internal hemorrhoids. History of hysterectomy Onset Date: 2000 History of incision and drainage Onset Date: 2006 Perirectal abscess. History of tonsillectomy Family History: Family History (Last Reviewed 05/17/22 @ 10:20 by Andrez Murphy MD) Mother Diabetes mellitus Heart problem Father Heart problem Diabetes mellitus Sibling ALS (amyotrophic lateral sclerosis) - Social History Social History: Social History (Last Reviewed 05/17/22 @ 10:20 by Andrez Murphy MD) Alcohol Use: Alcohol intake: never Alcohol use details: rare Substance Use: Substance use: never Substance use type: does not use Other substance usage details: occasional alcohol Others: Spiritual care concerns: No Smoking Status: Smoking status: Never smoker Social Determinants of Health: Has the Lack of Transportation Kept You From Medical Appointments or From Getting Medications?: No Within the Past 12 Months, Were You Worried Whether Your Food Would Run Out Before You Got Money to Buy More?: Never True What is Your Housing Situation Today?: I Have Housing Are You Worried That in the Next 2 Months, You May Not Have Your Own Housing to Live In?: No Do You Have Trouble Paying Your Heating Or Electricity Bill?: No Do You Have Trouble Paying For Medicines?: No Are You Currently Unemployed and Looking for Work?: No Highest Level of Education Completed: High School Diploma/GED Do You Have Trouble With Childcare or the Care of a Family Member?: No Exam - Vital Signs Vital Signs - 24 hr 05/17/22 20:00 05/17/22 23:44 05/17/22 23:30 Temperature 36.7 C 36.4 C P
[2022-05-18 18:54] VITALS: BP 131/74; PULSE 95; RESP 20; TEMP 36.6; O2SAT 98
[2022-05-18] MEDS: polyethylene glycoL 3350 17 GM POWD.PACK PO (20:14)
[2022-05-18 20:24] LABS: Glucose Point of Care 119 mg/dl (65-105)
[2022-05-18 20:51] VITALS: BP 119/67; PULSE 83; RESP 18; TEMP 36.3; O2SAT 97
[2022-05-18 21:30] VITALS: PULSE 85; O2SAT 96
[2022-05-19 01:03] VITALS: BP 120/76; PULSE 86; RESP 18; TEMP 36.4; O2SAT 95
[2022-05-19 04:00] VITALS: BP 107/59; PULSE 90; RESP 20; TEMP 36.6; O2SAT 99
[2022-05-19 05:31] LABS: Hematocrit 27.5 % (37.0-47.0); Mean Corpuscular HGB Conc 29.1 g/dl (32-36); Mean Corpuscular Hemoglobin 23.8 pg (26-34); Mean Corpuscular Volume 81.8 fl (80-100); Mean Platelet Volume 9.4 fl (7.4-10.4); Platelet Count Result 273 k/mm3 (150-375); Red Blood Count 3.36 M/mm3 (4.2-5.4); White Blood Count 4.6 K/mm3 (4.5-10.0)
[2022-05-19 05:33] LABS: Anion Gap 6 mmol/L (8-16); Blood Urea Nitrogen 12 mg/dL (7-17); Calcium 8.8 mg/dL (8.4-10.2); Carbon Dioxide 26 mmol/L (22-30); Chloride 106 mmol/L (98-107); Estimated CRCL calculation 58 ml/min; Estimated Glomerular Filt Rate 55; Glucose 109 mg/dL (65-110); Potassium 4.4 mmol/L (3.4-5.0); Sodium 138 mmol/L (137-145)
[2022-05-19] MEDS: LEVOTHYROXINE SODIUM 50 MCG TABLET PO (06:14)
[2022-05-19] MEDS: IRON SUCROSE COMPLEX 500 MG in SODIUM CHLORIDE 0.9% IV 250 ML 78.57 MG IVPB (08:07)
[2022-05-19] MEDS: OLMESARTAN MEDOXOMIL 20 MG TABLET PO (08:08)
[2022-05-19] MEDS: FERROUS SULFATE 324 MG TABLET PO (08:08)
[2022-05-19] MEDS: ESCITALOPRAM OXALATE 10 MG TABLET PO (08:08)
[2022-05-19] MEDS: hydroCHLOROthiazide 12.5 MG CAPSULE PO (08:08)
[2022-05-19] MEDS: PANTOPRAZOLE 40 MG TABLET PO (08:08)
[2022-05-19] MEDS: allopurinoL 300 MG TABLET PO (08:08)
[2022-05-19] MEDS: CYANOCOBALAMIN 500 MCG TABLET PO (08:08)
[2022-05-19] MEDS: CHOLECALCIFEROL 1,000 UNITS TABLET 5000 UNITS PO (08:08)
[2022-05-19] MEDS: OMEGA 3 POLYUNSAT FATTY ACIDS 1 GM CAP 2 GM PO (08:08)
[2022-05-19] MEDS: guaiFENesin 12 HR 600 MG TABCR PO (08:08)
[2022-05-19] MEDS: ATORVASTATIN 40 MG TABLET PO (08:08)
[2022-05-19 09:42] VITALS: BP 109/58; PULSE 82; RESP 20; TEMP 36.6; O2SAT 98
--- NOTE | 2022-05-19 11:08 | PM.DS ---
DS: Admitting Diagnosis Discharge Date 05/19/2022 Admitting Diagnosis Anemia DS: Discharge Diagnosis Discharge Diagnosis (1) Anemia: Code(s): D64.9 - Anemia, unspecified Status: Acute Assessment and Plan: Hemoglobin 6.3 on arrival Transfused 1 unit pRBCs with stabilization of Hgb Hemoglobin remaining stable following transfusion. No active bleeding noted. No signs/symptoms to suggest GI bleed UA without blood LDH and total bilirubin elevated. Haptoglobin pending. May be related to hemolysis Seen in consultation by hematology and will continue with outpatient follow up Received IV iron infusion 500 mg x2. Increased p.o. iron supplementation to b.i.d. Aspirin held but resumed prior to discharge as no evidence of active GI bleeding. Recheck H&H in 1 week to ensure remaining stable (2) GI bleed: Code(s): K92.2 - Gastrointestinal hemorrhage, unspecified Status: Acute Assessment and Plan: Recent admission for anemia found to have AVM which was cauterized and gastritis No active GI bleeding noted Appreciate GI consultation Continue Protonix Awaiting insurance authorization for outpatient capsule endoscopy See plan as above (3) Chronic kidney disease, stage 3: Code(s): N18.30 - Chronic kidney disease, stage 3 unspecified Status: Acute Assessment and Plan: Renal function is consistent with baseline (4) Hypertension: Code(s): I10 - Essential (primary) hypertension Status: Acute Assessment and Plan: Blood pressure is stable. continue home olmesartan-HCTZ with parameters (5) Hypothyroidism: Code(s): E03.9 - Hypothyroidism, unspecified Status: Acute Assessment and Plan: TSH is within normal limits Continue levothyroxine (6) Type 2 diabetes mellitus: Code(s): E11.9 - Type 2 diabetes mellitus without complications Status: Acute Assessment and Plan: A1c is 5.5 Continue home Ozempic (7) Obstructive sleep apnea on CPAP: Code(s): G47.33 - Obstructive sleep apnea (adult) (pediatric); Z99.89 - Dependence on other enabling machines and devices Status: Acute Assessment and Plan: Continue home CPAP DS: Summary Hospital Course Hospital Course: Date of admission: 05/16/2022 Date of discharge: 05/19/2022 Iveth Cortez is a 66 year old female with a history of AVM of colon, CKD, hypertension, hyperlipidemia, hypothyroidism, WAYLON on CPAP, TIA, type 2 diabetes mellitus, known to me from recent admission 2 weeks ago for profound anemia felt to be secondary to GI bleeding who presented to the emergency department on 05/16/2022 under the direction of her primary care provider due to anemia on outpatient labs. On discharge from hospital on 05/04, patient was started on iron supplementation and Protonix. Aspirin was held for 1 week. Patient had her blood drawn on Friday 05/11 per her discharge orders from prior hospitalization and hemoglobin at that time was 8.7. On repeat 1 week later, her hemoglobin was 6.3 and she was directed to the emergency department. On presentation, her vital signs were stable, H&H was decreased, additional laboratory workup was unremarkable. She was admitted to the hospitalist service for further evaluation and management was seen in consultation by Gastroenterology and Hematology. There was no signs of active GI bleeding. Patient is in the process of following up for capsule endoscopy pending insurance approval. There was concern for mild hemolysis, therefore patient was seen by Hematology. She received IV iron infusion x2 during admission and will increased p.o. iron supplementation to twice daily. She will follow-up with hematology as an outpatient for further labs, including haptoglobin which is pending at time of discharge. Patient will repeat H&H in 1 week and will follow-up with her primary care provider. She was feeling back to her
[2022-05-19 13:46] VITALS: BP 113/67; PULSE 84; RESP 20; TEMP 36.5; O2SAT 98
[2022-05-20 21:10] LABS: Haptoglobin <8 mg/dL (43-212)
== END 2022-05-19 14:45 | disposition home or self-care (01) | DRG 812 ==
LOC: ANHED 12:48 → ANH2MED 13:11
PROVIDERS: Internal Medicine Gastroenterology; Nurse Practitioner; Admitting Provider Internal Medicine; Emergency Provider Emergency Medicine; PCP Physician Assistant; Visit Provider Physician Assistant
DX: D64.9 Anemia, unspecified (principal); E11.22 Type 2 diabetes mellitus with diabetic chronic kidney disease; I12.9 Hypertensive chronic kidney disease with stage 1 through stage 4 chronic kidney disease, or unspecified chronic kidney disease; N18.30 Chronic kidney disease, stage 3 unspecified; G47.33 Obstructive sleep apnea (adult) (pediatric); E78.5 Hyperlipidemia, unspecified; F41.8 Other specified anxiety disorders; M10.9 Gout, unspecified; K55.20 Angiodysplasia of colon without hemorrhage; R10.12 Left upper quadrant pain; K59.00 Constipation, unspecified; E11.40 Type 2 diabetes mellitus with diabetic neuropathy, unspecified; E03.9 Hypothyroidism, unspecified; R74.02 Elevation of levels of lactic acid dehydrogenase [LDH]; Z20.822 Contact with and (suspected) exposure to COVID-19; Z79.82 Long term (current) use of aspirin; Z79.899 Other long term (current) drug therapy; Z86.73 Personal history of transient ischemic attack (TIA), and cerebral infarction without residual deficits; Z88.0 Allergy status to penicillin; Z88.2 Allergy status to sulfonamides; Z99.89 Dependence on other enabling machines and devices
CPT/HCPCS: 36415; 36430; 74177; 80048; 80053; 81003; 82274; 82728; 82948; 83010; 83615; 83735; 84443; 85014; 85018; 85025; 85027; 85055; 85610; 85730; 86850; 86870; 86880; 86900; 86901; 86902; 86905; 86922; 86971; 86972; 87636; 99285; A9270; C9113; J1756; J7050; P9016; Q9967

== ENCOUNTER 2022-05-25 08:25 | Outpatient (CLI) | payer MEDICARE, SELFPAY ==
[2022-05-25 09:01] LABS: Hematocrit 33.3 % (37.0-47.0)
[2022-05-25 09:02] LABS: Basophils Absolute Auto 0.1 K/mm3 (0.0-0.1); Basophils Percent Auto 0.9 % (0.2-1.2); Eosinophils Absolute Auto 0.1 K/mm3 (0-0.3); Eosinophils Percent Auto 2.2 % (0-4.4); Hematocrit 33.6 % (37.0-47.0); Immature Granulocyte Absolute 0.04 K/mm3 (0.00-0.031); Immature Granulocyte Percent A 0.7 % (0-0.5); Lymphocytes Absolute Auto 1.54 K/mm3 (0.9-3.2); Lymphocytes Percent Auto 28.3 % (18.3-44.2); Mean Corpuscular HGB Conc 29.8 g/dl (32-36); Mean Corpuscular Hemoglobin 25.7 pg (26-34); Mean Corpuscular Volume 86.4 fl (80-100); Mean Platelet Volume 8.9 fl (7.4-10.4); Monocytes Absolute Auto 0.5 K/mm3 (0.1-0.6); Monocytes Percent Auto 8.3 % (2.6-8.5); Neutrophils Absolute Auto 3.2 K/mm3 (1.3-6.7); Neutrophils Percent Auto 59.6 % (45.5-73.1); Platelet Count Result 366 k/mm3 (150-375); Red Blood Count 3.89 M/mm3 (4.2-5.4); Red Cell Distribution Width 31.5 % (11.5-14.5); White Blood Count 5.4 K/mm3 (4.5-10.0)
[2022-05-25 09:36] LABS: Alanine Aminotransferase 20 U/L (6-35); Albumin Level 4.4 g/dL (3.5-5.1); Alkaline Phosphatase 144 U/L (38-126); Anion Gap 9 mmol/L (8-16); Aspartate Amino Transferase 24 U/L (14-36); Bilirubin,Total 0.9 mg/dL (0.2-1.3); Blood Urea Nitrogen 17 mg/dL (7-17); Calcium 9.2 mg/dL (8.4-10.2); Carbon Dioxide 25 mmol/L (22-30); Chloride 105 mmol/L (98-107); Estimated Glomerular Filt Rate 55; Glucose 115 mg/dL (65-110); Potassium 4.2 mmol/L (3.4-5.0); Sodium 139 mmol/L (137-145)
[2022-05-25 11:57] LABS: Macrocytosis 1+ (NORMAL); Platelet Estimate Adequate (Adequate); Poikilocytosis 1+ (NORMAL); Schistocytes 1+ (NORMAL); Stomatocytes 1+ (NORMAL)
[2022-05-25 11:58] LABS: Anisocytosis 1+ (NORMAL); Hypochromasia 1+ (NORMAL)
== END 2022-05-25 08:26 | disposition home or self-care (01) ==
PROVIDERS: PCP Physician Assistant; Referring Provider Physician Assistant; Visit Provider Physician Assistant
DX: D64.9 Anemia, unspecified (principal); E11.22 Type 2 diabetes mellitus with diabetic chronic kidney disease; I12.9 Hypertensive chronic kidney disease with stage 1 through stage 4 chronic kidney disease, or unspecified chronic kidney disease
CPT/HCPCS: 36415; 80053; 85014; 85018; 85025

== ENCOUNTER 2022-06-05 10:42 | Outpatient (CLI) | payer MEDICARE, SELFPAY ==
[2022-06-05 10:52] LABS: Basophils Percent Auto 0.6 % (0.2-1.2); Eosinophils Absolute Auto 0.1 K/mm3 (0-0.3); Eosinophils Percent Auto 1.4 % (0-4.4); Hematocrit 36.3 % (37.0-47.0); Hemoglobin 11.3 g/dL (12.0-15.0); Immature Granulocyte Absolute 0.03 K/mm3 (0.00-0.031); Immature Granulocyte Percent A 0.4 % (0-0.5); Lymphocytes Absolute Auto 1.24 K/mm3 (0.9-3.2); Lymphocytes Percent Auto 17.6 % (18.3-44.2); Mean Corpuscular HGB Conc 31.1 g/dl (32-36); Mean Corpuscular Hemoglobin 27.4 pg (26-34); Mean Corpuscular Volume 87.9 fl (80-100); Mean Platelet Volume 8.5 fl (7.4-10.4); Monocytes Absolute Auto 0.5 K/mm3 (0.1-0.6); Monocytes Percent Auto 7.4 % (2.6-8.5); Neutrophils Absolute Auto 5.1 K/mm3 (1.3-6.7); Neutrophils Percent Auto 72.6 % (45.5-73.1); Platelet Count Result 205 k/mm3 (150-375); Red Blood Count 4.13 M/mm3 (4.2-5.4); Red Cell Distribution Width 25.7 % (11.5-14.5)
[2022-06-05 15:01] LABS: Alanine Aminotransferase 19 U/L (6-35); Albumin Level 4.4 g/dL (3.5-5.1); Alkaline Phosphatase 128 U/L (38-126); Anion Gap 6 mmol/L (8-16); Aspartate Amino Transferase 23 U/L (14-36); Bilirubin,Total 0.9 mg/dL (0.2-1.3); Blood Urea Nitrogen 19 mg/dL (7-17); Calcium 9.6 mg/dL (8.4-10.2); Carbon Dioxide 29 mmol/L (22-30); Chloride 101 mmol/L (98-107); Estimated Glomerular Filt Rate 55; Glucose 100 mg/dL (65-110); Lactate Dehydrogenase 238 U/L (120-246); Potassium 4.2 mmol/L (3.4-5.0); Sodium 136 mmol/L (137-145)
[2022-06-05 15:18] LABS: Iron 56 ug/dL (37-170); Percent Iron Saturation 17 % (20-50)
== END 2022-06-05 10:43 | disposition home or self-care (01) ==
LOC: ANHLAB 10:43
PROVIDERS: PCP Physician Assistant; Visit Provider Internal Medicine Hematology & Oncology
DX: D64.9 Anemia, unspecified (principal)
CPT/HCPCS: 36415; 80053; 82607; 82728; 83540; 83550; 83615; 85025

== ENCOUNTER 2022-06-17 11:28 | Emergency (ER) | payer MEDICARE, SELFPAY ==
--- NOTE | ~2022-06-17 | XR_ITS ---
Left Humerus Technique: AP and lateral views were obtained. Clinical History: Pain Findings: No fracture or dislocation is seen. Osseous alignment is anatomic. Visualized joint spaces are grossly preserved. Calcific density at the rotator cuff region is compatible with calcific tendin itis.. Impression: No fracture or dislocation. Probable calcific tendinitis of the rotator cuff. Reviewed, dictated and finalized at location . GER PORTABLE Impression: No fracture or dislocation. Probable calcific tendinitis of the rotator cuff.
--- NOTE | ~2022-06-17 | CT_ITS ---
Non-contrast Head CT History: Head injury COMPARISON: 03/27/2022 Technique: Axial non-contrast imaging of the brain was performed. Dose reduction technique was used on this scan by utilizing automated exposure control and iterative reconstruction technique. The dose -length product (DLP) was 605.33 mGy-cm. Findings: There is no evidence of intracranial hemorrhage, mass lesion, or acute infarct. Brain par enchyma appears normal. The ventricles and subarachnoid spaces are normal in size. The calvarium ap pears normal. Left maxillary sinus disease partially imaged. The remaining visualized paranasal sinus es and mastoid air cells are clear. Impression: No intracranial abnormality seen. Reviewed, dictated and finalized at location . R FOAM RUBBER Impression: No intracranial abnormality seen.
[2022-06-17 11:52] VITALS: BP 124/74; PULSE 87; RESP 16; TEMP 36.5; O2SAT 96
--- NOTE | 2022-06-17 13:17 | PC.NURSE ---
Dr. Girard at bedside to assess pt.
--- NOTE | 2022-06-17 13:30 | PC.NURSE ---
Patient off unit to radiology.
[2022-06-17] MEDS: ACETAMINOPHEN 500 MG TABLET 1000 MG PO (13:50)
--- NOTE | 2022-06-17 14:04 | ED.HEATRA ---
HPI - Head Injury General Chief complaint: Head Injury Stated complaint: TRIP AND FALL, HI Time Seen by Provider: 06/17/22 13:11 Source: patient, family, RN notes reviewed and old records reviewed Mode of arrival: ambulatory Limitations: no limitations History of Present Illness HPI Narrative: This is a 67 year old female who presents for evaluation of a laceration and head injury. Patient states around 1130 am this morning she tripped of a speed bump, and this caused her to all forward. She hit her head on concrete but she denies LOC. She denies neck pain or back pain. She does reports left upper arm pain after her fall. She thinks she is up to date on tetanus. SHe denies headache, dizziness, nausea or vomiting. Related Data Home Medications Medication Instructions Recorded Confirmed allopurinol 300 mg tablet 300 mg PO DAILY 07/19/20 05/16/22 atorvastatin 40 mg tablet 40 mg PO DAILY 07/19/20 05/16/22 cholecalciferol (vitamin D3) 125 125 mcg PO DAILY 07/19/20 05/16/22 mcg (5,000 unit) tablet (Vitamin D3) cyanocobalamin (vitamin B-12) 500 500 mcg PO DAILY 07/19/20 05/16/22 mcg tablet (Vitamin B-12) fluticasone propionate 50 2 spray intranasal DAILY PRN Sinus 07/19/20 05/16/22 mcg/actuation nasal Symptoms spray,suspension levothyroxine 50 mcg tablet 50 mcg PO DAILY 07/19/20 05/16/22 olmesartan 20 1 tablet PO DAILY 07/19/20 05/16/22 mg-hydrochlorothiazide 12.5 mg tablet semaglutide 1 mg/dose (2 mg/1.5 1 mg subcut WEEKLY 07/19/20 05/16/22 mL) subcutaneous pen injector (Ozempic) escitalopram oxalate 10 mg tablet 10 mg PO DAILY 05/03/22 05/16/22 icosapent ethyl 1 gram capsule 2 g PO BID 05/03/22 05/16/22 (Vascepa) Allergies Allergy/AdvReac Type Severity Reaction Status Date / Time Penicillins Allergy Intermediate Hives Verified 06/17/22 12:54 Sulfa (Sulfonamide Allergy Mild Other Verified 06/17/22 12:54 Antibiotics) Review of Systems Review of Systems: All systems reviewed & are unremarkable except as noted in HPI and below PMFSH Past Medical History Medical History Abnormal cardiac CT angiography (07/2021) Acute blood loss anemia AVM (arteriovenous malformation) of colon Chronic kidney disease, stage 3 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 Depression with anxiety Elevated LDH Gout Hyperlipidemia Hypertension Hypothyroidism Neuropathy Obstructive sleep apnea on CPAP Transient ischemic attack (2016) Type 2 diabetes mellitus Surgical History Surgical History History of appendectomy (2005) History of x3 History of cardiac catheterization (08/08/21) Right coronary dominant circulation with no significant coronary artery stenosis save for about 80% stenosis of a small 2nd septal branch of the LAD. Normal LV systolic function. History of colonoscopy (09/04/20) Per Dr. Hdz. Notable findings include benign colon polyps, arteriovenous malformations, and internal hemorrhoids. History of hysterectomy (2000) History of incision and drainage (2006) Perirectal abscess. History of tonsillectomy Family History Family History Mother Diabetes mellitus Heart problem Father Heart problem Diabetes mellitus Sibling ALS (amyotrophic lateral sclerosis) Social History Social History Social History: She is retired from [employer] and has 3 children. She is and her son Joey lives with her. Surrogate medical decision maker: Joey Cortez, son. She is lifelong nonsmoker. Code status: Full code. Smoking status: Never smoker Alcohol intake: never Alcohol use details: rare Substance use: never Substance use type: does not use Other substance usage details: occasional alcohol Lack of Transportation: No Lack of Food: Never T
[2022-06-17 15:24] VITALS: BP 120/76; PULSE 80; RESP 16; TEMP 36.7; O2SAT 98
== END 2022-06-17 15:28 | disposition home or self-care (01) ==
PROVIDERS: Emergency Provider General Practice; PCP Physician Assistant
DX: S01.81XA Laceration without foreign body of other part of head, initial encounter (principal); S09.90XA Unspecified injury of head, initial encounter; M75.32 Calcific tendinitis of left shoulder; I12.9 Hypertensive chronic kidney disease with stage 1 through stage 4 chronic kidney disease, or unspecified chronic kidney disease; E11.22 Type 2 diabetes mellitus with diabetic chronic kidney disease; N18.30 Chronic kidney disease, stage 3 unspecified; E11.40 Type 2 diabetes mellitus with diabetic neuropathy, unspecified; E78.5 Hyperlipidemia, unspecified; M10.9 Gout, unspecified; E03.9 Hypothyroidism, unspecified; G47.33 Obstructive sleep apnea (adult) (pediatric); F41.8 Other specified anxiety disorders; Z86.73 Personal history of transient ischemic attack (TIA), and cerebral infarction without residual deficits; Z90.710 Acquired absence of both cervix and uterus; Z79.85 Long-term (current) use of injectable non-insulin antidiabetic drugs; Z79.82 Long term (current) use of aspirin; W18.09XA Striking against other object with subsequent fall, initial encounter
CPT/HCPCS: 12011; 70450; 73060; 99284; A9270

== ENCOUNTER 2022-09-30 07:58 | Outpatient (CLI) | payer MEDICARE, SELFPAY ==
[2022-09-30 08:20] LABS: Basophils Percent Auto 0.5 % (0.2-1.2); Eosinophils Absolute Auto 0.2 K/mm3 (0-0.3); Eosinophils Percent Auto 2.7 % (0-4.4); Hemoglobin 12.3 g/dL (12.0-15.0); Immature Granulocyte Absolute 0.03 K/mm3 (0.00-0.031); Immature Granulocyte Percent A 0.5 % (0-0.5); Lymphocytes Absolute Auto 1.96 K/mm3 (0.9-3.2); Lymphocytes Percent Auto 34.8 % (18.3-44.2); Mean Corpuscular HGB Conc 33.2 g/dl (32-36); Mean Corpuscular Hemoglobin 30.1 pg (26-34); Mean Corpuscular Volume 90.5 fl (80-100); Mean Platelet Volume 9.5 fl (7.4-10.4); Monocytes Absolute Auto 0.5 K/mm3 (0.1-0.6); Monocytes Percent Auto 8.9 % (2.6-8.5); Neutrophils Percent Auto 52.6 % (45.5-73.1); Platelet Count Result 241 k/mm3 (150-375); Red Blood Count 4.09 M/mm3 (4.2-5.4); Red Cell Distribution Width 16.5 % (11.5-14.5); White Blood Count 5.6 K/mm3 (4.5-10.0)
[2022-09-30 09:47] LABS: Iron 59 ug/dL (37-170)
[2022-09-30 09:48] LABS: Anion Gap 5 mmol/L (8-16); Blood Urea Nitrogen 18 mg/dL (7-17); Calcium 9.5 mg/dL (8.4-10.2); Carbon Dioxide 31 mmol/L (22-30); Chloride 100 mmol/L (98-107); Estimated Glomerular Filt Rate > 60; Glucose 99 mg/dL (65-110); Potassium 4.1 mmol/L (3.4-5.0); Sodium 136 mmol/L (137-145)
[2022-09-30 10:01] LABS: Percent Iron Saturation 19 % (20-50)
[2022-09-30 10:55] LABS: Folic Acid 9.7 ng/mL (2.76->20)
== END 2022-09-30 07:59 | disposition home or self-care (01) ==
LOC: ANHLAB 08:00
PROVIDERS: PCP Physician Assistant; Visit Provider Internal Medicine Hematology & Oncology
DX: D64.9 Anemia, unspecified (principal)
CPT/HCPCS: 36415; 80048; 82607; 82728; 82746; 83540; 83550; 85025

== ENCOUNTER 2023-03-26 13:11 | Outpatient (CLI) | payer MEDICARE, SELFPAY ==
[2023-03-26 14:53] LABS: Red Cell Distribution Width 14.2 % (11.5-14.5)
[2023-03-26 15:08] LABS: Hematocrit 37.4 % (37.0-47.0); Hemoglobin 12.7 g/dL (12.0-15.0); Mean Corpuscular Volume 91.2 fl (80-100); Mean Platelet Volume 10.4 fl (7.4-10.4); Platelet Count Result 275 k/mm3 (150-375); White Blood Count 8.3 K/mm3 (4.5-10.0)
[2023-03-26 16:22] LABS: Iron 60 ug/dL (37-170)
[2023-03-26 16:33] LABS: Percent Iron Saturation 20 % (20-50)
== END 2023-03-26 13:12 | disposition home or self-care (01) ==
PROVIDERS: PCP Physician Assistant; Visit Provider Internal Medicine Hematology & Oncology
DX: D64.9 Anemia, unspecified (principal)
CPT/HCPCS: 36415; 82728; 83540; 83550; 85027

== ENCOUNTER 2023-05-24 07:46 | Outpatient (CLI) | payer MEDICARE, SELFPAY ==
--- NOTE | ~2023-05-24 | MM_ITS ---
EXAMINATION: MM screening [facility] BI [facility] [place] HISTORY: Screening mammogram TECHNIQUE: Craniocaudal and mediolateral oblique 3-D tomosynthesis images were obtained and synthetic 2-D images were generated. CAD analysis was submitted and interpreted. COMPARISON: 05/06/2022, 02/20/2021, 02/09/2020 BREAST PARENCHYMAL COMPOSITION: There are scattered areas of fibroglandular density. FINDINGS: No suspicious mass, calcification, or architectural distortion are identified in either miguel ast to suggest malignancy. There has been no suspicious interval change. IMPRESSION: 1. No mammographic evidence of malignancy. 2. Recommend routine screening mammography in one year. BI-RADS Category 1: Negative Reviewed, dictated and finalized at location A. THETIST
== END 2023-05-24 07:47 | disposition home or self-care (01) ==
LOC: ANHIMG 07:48
PROVIDERS: PCP Physician Assistant; Visit Provider Physician Assistant
DX: Z12.31 Encounter for screening mammogram for malignant neoplasm of breast (principal)
CPT/HCPCS: 77063; 77067

== ENCOUNTER 2023-10-11 01:51 | Day surgery (SDC) | payer MEDICARE, SELFPAY ==
[2023-09-29 12:02] VITALS: BMI 39.1
[2023-10-11 08:53] VITALS: BP 148/88; PULSE 84; RESP 18; TEMP 36.2; O2SAT 97
[2023-10-11 09:01] LABS: Glucose Point of Care 115 mg/dl (65-105)
[2023-10-11] MEDS: LACTATED RINGERS 1,000 ML 150 ML IV CONT (09:07)
--- NOTE | 2023-10-11 09:25 | WPDANESEPPF ---
Anes - Initial Pre Proc Eval Procedure: Operation Date: 10/11/23 10:00 Proposed Procedures p Esophagogastroduodenoscopy - Daniele Hdz MD Date/Time: 10/11/23 09:25 Surgeon: Daniele Hdz MD Pre Op Diagnosis: Dysphagia, unspecified Patient Data Age: 68 Gender: F Height: 1.7 m Weight: 112.6 kg Last Vital Signs Temp 97.2 F L 10/11/23 08:53 Pulse 84 10/11/23 08:53 Resp 18 10/11/23 08:53 BP 148/88 H 10/11/23 08:53 Pulse Ox 97 10/11/23 08:53 O2 Del Method Room Air 10/11/23 08:53 Allergies Allergy/AdvReac Type Severity Reaction Status Date / Time Penicillins Allergy Intermediate Hives Verified 10/11/23 08:50 Sulfa (Sulfonamide Allergy Mild Other Verified 10/11/23 08:50 Antibiotics) Home Medications Medication Instructions Recorded Confirmed Type allopurinol 300 mg tablet 300 mg PO DAILY 07/19/20 10/11/23 History atorvastatin 40 mg tablet 40 mg PO DAILY 07/19/20 10/11/23 History cholecalciferol (vitamin D3) 125 125 mcg PO DAILY 07/19/20 10/11/23 History mcg (5,000 unit) tablet (Vitamin D3) cyanocobalamin (vitamin B-12) 500 500 mcg PO DAILY 07/19/20 10/11/23 History mcg tablet (Vitamin B-12) fluticasone propionate 50 2 spray intranasal DAILY PRN Sinus 07/19/20 10/11/23 History mcg/actuation nasal Symptoms spray,suspension levothyroxine 50 mcg tablet 50 mcg PO DAILY 07/19/20 10/11/23 History olmesartan 20 1 tablet PO DAILY 07/19/20 10/11/23 History mg-hydrochlorothiazide 12.5 mg tablet semaglutide 1 mg/dose (2 mg/1.5 1 mg subcut WEEKLY 07/19/20 10/11/23 History mL) subcutaneous pen injector (Ozempic) escitalopram oxalate 10 mg tablet 10 mg PO DAILY 05/03/22 10/11/23 History icosapent ethyl 1 gram capsule 2 g PO BID 05/03/22 10/11/23 History (Vascepa) ferrous sulfate 325 mg (65 mg 325 mg PO BIDWM #60 tabs 05/19/22 10/11/23 Rx iron) tablet famotidine 40 mg tablet (Pepcid) 40 mg PO DAILY 1 month #30 tabs 08/10/23 10/11/23 Rx Laboratory Tests 10/11/23 08:58 POC Capillary Glucose 115 H mg/dl (65-105) Patient hx anesthesia problems: none Family hx anesthesia problems: none Results Review: All pre-operative results and documents have been reviewed as part of the pre-operative evaluation. 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 Depression with anxiety Dysphagia Elevated LDH Gout Hyperlipidemia Hypertension Hypothyroidism Neuropathy Obstructive sleep apnea on CPAP Transient ischemic attack (2016) Type 2 diabetes mellitus Surgical History Surgical History History of appendectomy (2005) History of x3 History of cardiac catheterization (08/08/21) Right coronary dominant circulation with no significant coronary artery stenosis save for about 80% stenosis of a small 2nd septal branch of the LAD. Normal LV systolic function. History of colonoscopy (09/04/20) Per Dr. Hdz. Notable findings include benign colon polyps, arteriovenous malformations, and internal hemorrhoids. History of hysterectomy (2000) History of incision and drainage (2006) Perirectal abscess. History of tonsillectomy Family History Family History Mother Diabetes mellitus Heart problem Father Heart problem Diabetes mellitus Sibling ALS (amyotrophic lateral sclerosis) Social History Social History Social History: She is retired from [employer] and has 3 children. She is and her son Joey lives with her. Surrogate medical decision maker: Joey Cortez, son. She is lifelong n
--- NOTE | 2023-10-11 09:31 | PM.HPGS ---
History of Present Illness History of Present Illness Consent: Risks, benefits, and alternatives have been discussed and questions answered. Patient agrees to proceed with procedure. Chief complaint: Dysphagia, unspecified Narrative: Iveth Cortez is a 68 year old female with dysphagia for few months, using pepcid now. EGD with [facility] 2021 because anemia. 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 Depression with anxiety Dysphagia Elevated LDH Gout Hyperlipidemia Hypertension Hypothyroidism Neuropathy Obstructive sleep apnea on CPAP Transient ischemic attack (2016) Type 2 diabetes mellitus Surgical History Surgical History History of appendectomy (2005) History of x3 History of cardiac catheterization (08/08/21) Right coronary dominant circulation with no significant coronary artery stenosis save for about 80% stenosis of a small 2nd septal branch of the LAD. Normal LV systolic function. History of colonoscopy (09/04/20) Per Dr. Hdz. Notable findings include benign colon polyps, arteriovenous malformations, and internal hemorrhoids. History of hysterectomy (2000) History of incision and drainage (2006) Perirectal abscess. History of tonsillectomy Family History Family History Mother Diabetes mellitus Heart problem Father Heart problem Diabetes mellitus Sibling ALS (amyotrophic lateral sclerosis) Social History Social History Social History: She is retired from [employer] and has 3 children. She is and her son Joey lives with her. Surrogate medical decision maker: Joey Cortez, son. She is lifelong nonsmoker. Code status: Full code. Smoking status: Never smoker Alcohol intake: current Alcohol use details: rarely Substance use: never Substance use type: does not use Other substance usage details: occasional alcohol Lack of Transportation: No Lack of Food: Never True Current Housing: I Have Housing Concerned About Future Housing: No Difficulty Paying Gas/Electric Bills: No Difficulty Paying for Meds: No Currently Unemployed: No Education: High School Diploma/GED Difficulty w/ Childcare or Family Care: No Living arrangements: alone Spiritual care concerns: No Meds Home Medications and Allergies Home Medications Medication Instructions Recorded Confirmed Type allopurinol 300 mg tablet 300 mg PO DAILY 07/19/20 10/11/23 History atorvastatin 40 mg tablet 40 mg PO DAILY 07/19/20 10/11/23 History cholecalciferol (vitamin D3) 125 125 mcg PO DAILY 07/19/20 10/11/23 History mcg (5,000 unit) tablet (Vitamin D3) cyanocobalamin (vitamin B-12) 500 500 mcg PO DAILY 07/19/20 10/11/23 History mcg tablet (Vitamin B-12) fluticasone propionate 50 2 spray intranasal DAILY PRN Sinus 07/19/20 10/11/23 History mcg/actuation nasal Symptoms spray,suspension levothyroxine 50 mcg tablet 50 mcg PO DAILY 07/19/20 10/11/23 History olmesartan 20 1 tablet PO DAILY 07/19/20 10/11/23 History mg-hydrochlorothiazide 12.5 mg tablet semaglutide 1 mg/dose (2 mg/1.5 1 mg subcut WEEKLY 07/19/20 10/11/23 History mL) subcutaneous pen injector (Ozempic) escitalopram oxalate 10 mg tablet 10 mg PO DAILY 05/03/22 10/11/23 History icosapent ethyl 1 gram capsule 2 g PO BID 05/03/22 10/11/23 History (Vascepa) ferrous sulfate 325 mg (65 mg 325 mg PO BIDWM #60 tabs 05/19/22 10/11/23 Rx iron) tablet famotidine 40
[2023-10-11 09:42] VITALS: BP 110/73; PULSE 85; RESP 18; O2SAT 98
[2023-10-11 09:52] VITALS: BP 107/71; PULSE 79; RESP 18; O2SAT 95
[2023-10-11 10:00] VITALS: BP 119/71; PULSE 73; RESP 18; O2SAT 96
== END 2023-10-11 10:21 | disposition home or self-care (01) ==
PROVIDERS: PCP Physician Assistant; Visit Provider Internal Medicine Gastroenterology
PROC: 0DJ08ZZ Inspection of Upper Intestinal Tract, Via Natural or Artificial Opening Endoscopic (ICD-10-PCS; CPT 43235; principal; 2023-10-11 10:00)
DX: K29.50 Unspecified chronic gastritis without bleeding (principal); E03.9 Hypothyroidism, unspecified; E78.5 Hyperlipidemia, unspecified; I12.9 Hypertensive chronic kidney disease with stage 1 through stage 4 chronic kidney disease, or unspecified chronic kidney disease; N18.30 Chronic kidney disease, stage 3 unspecified; F41.8 Other specified anxiety disorders; G47.33 Obstructive sleep apnea (adult) (pediatric); D62 Acute posthemorrhagic anemia; Q27.33 Arteriovenous malformation of digestive system vessel; E66.9 Obesity, unspecified; Z68.38 Body mass index [BMI] 38.0-38.9, adult; Z79.85 Long-term (current) use of injectable non-insulin antidiabetic drugs; Z99.89 Dependence on other enabling machines and devices; Z98.890 Other specified postprocedural states; Z98.61 Coronary angioplasty status; Z86.73 Personal history of transient ischemic attack (TIA), and cerebral infarction without residual deficits; Z82.49 Family history of ischemic heart disease and other diseases of the circulatory system
CPT/HCPCS: 43239; 82948; 88305; J2704; J7120

== ENCOUNTER 2023-11-03 08:11 | Outpatient (CLI) | payer MEDICARE, SELFPAY ==
--- NOTE | ~2023-11-03 | XR_ITS ---
EXAMINATION: XR barium swallow DATE: 11/03/2023 09:13 INDICATION: Dysphagia TECHNIQUE: The patient drank thick barium, gas-producing crystals, and thin barium. Fluoroscopic spot radiographs of the hypopharynx and esophagus were obtained. Fluoroscopy exposure time was 2.8 minut es. Total DAP was 17.47 Gycm^2 COMPARISON: None. FINDINGS: The pharynx is symmetric and without evidence of mass lesion or mucosal irregularity. The e sophagus is normal without mass or stricture. Esophageal motility is normal for age. There is no hiat al hernia. There was no gastroesophageal reflux with provocative maneuvers. IMPRESSION: 1. Normal esophagram. Reviewed, dictated and finalized at location A. IMPRESSION: 1. Normal esophagram.
== END 2023-11-03 08:12 | disposition home or self-care (01) ==
PROVIDERS: PCP Physician Assistant; Visit Provider Nurse Practitioner Family
DX: R13.10 Dysphagia, unspecified (principal)
CPT/HCPCS: 74220

== ENCOUNTER 2023-12-08 08:05 | Outpatient (CLI) | payer MEDICARE, SELFPAY ==
[2023-12-08 08:22] LABS: Hematocrit 39.5 % (37.0-47.0); Hemoglobin 13.3 g/dL (12.0-15.0); Mean Corpuscular HGB Conc 33.7 g/dl (32-36); Mean Corpuscular Hemoglobin 30.6 pg (26-34); Mean Corpuscular Volume 90.8 fl (80-100); Mean Platelet Volume 9.5 fl (7.4-10.4); Platelet Count Result 246 k/mm3 (150-375); Red Blood Count 4.35 M/mm3 (4.2-5.4); Red Cell Distribution Width 14.5 % (11.5-14.5); White Blood Count 7.3 K/mm3 (4.5-10.0)
[2023-12-08 10:12] LABS: Iron 69 ug/dL (37-170)
[2023-12-08 10:23] LABS: Percent Iron Saturation 25 % (20-50)
[2023-12-08 11:18] LABS: Folic Acid 5.9 ng/mL (2.76->20)
== END 2023-12-08 08:06 | disposition home or self-care (01) ==
LOC: ANHLAB 08:07
PROVIDERS: PCP Physician Assistant; Visit Provider Internal Medicine Hematology & Oncology
DX: D64.9 Anemia, unspecified (principal)
CPT/HCPCS: 36415; 82607; 82728; 82746; 83540; 83550; 85027

== ENCOUNTER 2024-04-27 08:00 | Outpatient (RCR) | payer MEDICARE, SELFPAY ==
[2024-04-27 08:00] VITALS: BMI 41.2
[2024-04-27 09:00] VITALS: BMI 41.2
== END 2024-05-22 10:56 | disposition home or self-care (01) ==
LOC: ANHDMC 08:00
PROVIDERS: PCP Physician Assistant; Visit Provider Physician Assistant
DX: E08.40 Diabetes mellitus due to underlying condition with diabetic neuropathy, unspecified (principal); Z71.89 Other specified counseling; Z71.3 Dietary counseling and surveillance
CPT/HCPCS: 97802; G0108

== ENCOUNTER 2024-07-05 08:52 | Outpatient (CLI) | payer MEDICARE, SELFPAY ==
--- NOTE | ~2024-07-05 | MM_ITS ---
EXAMINATION: MM screening [facility] BI w [facility] HISTORY: Screening mammogram TECHNIQUE: Craniocaudal and mediolateral oblique 3-D tomosynthesis images were obtained and synthetic 2-D images were generated. CAD analysis was submitted and interpreted. COMPARISON: 05/24/2023, 05/06/2022, 02/20/2021 BREAST PARENCHYMAL COMPOSITION:Not Dense. The breasts are almost entirely fatty FINDINGS: No suspicious mass, calcification, or architectural distortion are identified in either migule ast to suggest malignancy. There has been no suspicious interval change. IMPRESSION: No mammographic evidence of malignancy. Recommend routine screening mammography in one year. BI-RADS Category 1: Negative Reviewed, dictated and finalized at location . [employer]
== END 2024-07-05 08:53 | disposition home or self-care (01) ==
LOC: ANHIMG 08:55
PROVIDERS: PCP Physician Assistant; Visit Provider Physician Assistant
DX: Z12.31 Encounter for screening mammogram for malignant neoplasm of breast (principal)
CPT/HCPCS: 77063; 77067

== ENCOUNTER 2024-12-11 08:14 | Outpatient (CLI) | payer MEDICARE, SELFPAY ==
[2024-12-11 08:29] LABS: Basophils Percent Auto 0.5 % (0.2-1.2); Eosinophils Absolute Auto 0.1 K/mm3 (0-0.3); Eosinophils Percent Auto 1.3 % (0-4.4); Hematocrit 42.8 % (37.0-47.0); Hemoglobin 14.5 g/dL (12.0-15.0); Immature Granulocyte Absolute 0.04 K/mm3 (0.00-0.031); Immature Granulocyte Percent A 0.6 % (0-0.5); Lymphocytes Percent Auto 28.1 % (18.3-44.2); Mean Corpuscular HGB Conc 33.9 g/dl (32-36); Mean Corpuscular Hemoglobin 30.5 pg (26-34); Mean Corpuscular Volume 89.9 fl (80-100); Mean Platelet Volume 9.6 fl (7.4-10.4); Monocytes Absolute Auto 0.5 K/mm3 (0.1-0.6); Neutrophils Percent Auto 62.5 % (45.5-73.1); Platelet Count Result 228 k/mm3 (150-375); Red Blood Count 4.76 M/mm3 (4.2-5.4); Red Cell Distribution Width 14.6 % (11.5-14.5); White Blood Count 6.4 K/mm3 (4.5-10.0)
[2024-12-11 10:42] LABS: Anion Gap 12 mmol/L (4-12); Blood Urea Nitrogen 18 mg/dL (7-17); Calcium 10.1 mg/dL (8.4-10.2); Carbon Dioxide 22 mmol/L (22-30); Chloride 103 mmol/L (98-107); Estimated Glomerular Filt Rate 57; Glucose 141 mg/dL (65-110); Potassium 4.1 mmol/L (3.4-5.0); Sodium 137 mmol/L (137-145)
[2024-12-11 10:48] LABS: Iron 83 ug/dL (37-170)
[2024-12-11 10:57] LABS: Percent Iron Saturation 28 % (20-50)
== END 2024-12-11 08:15 | disposition home or self-care (01) ==
LOC: ANHLAB 08:16
PROVIDERS: PCP Physician Assistant; Visit Provider Internal Medicine Hematology & Oncology
DX: D64.9 Anemia, unspecified (principal)
CPT/HCPCS: 36415; 80048; 82728; 83540; 83550; 85025

== ENCOUNTER 2024-12-18 09:39 | Outpatient (CLI) | payer MEDICARE, SELFPAY ==
--- NOTE | ~2024-12-18 | US_ITS ---
EXAMINATION: US soft tissue head and neck DATE: 12/18/2024 09:55 INDICATION: Multinodular goiter. TECHNIQUE: Multiple ultrasound images of the thyroid were obtained. COMPARISON: None. FINDINGS: The right thyroid lobe measures 4.7 x 1.5 x 1.4 cm. The left thyroid lobe measures 4.8 x 2.1 x 1.7 c m. 1.7 cm very hypoechoic nodules in the left thyroid lobe with a smooth to ill-defined margins, with out echogenic foci without a clearly delineated linear echogenic posterior wall to suggest a cyst and potentially solid. (TI-RADS 4, moderately suspicious , FNA if >=1.5 cm, annual followup is >=1 cm). 1.3 cm TI RADS 1 spongiform nodule at the inferior right thyroid lobe. 4 mm hypoechoic nodule with sm all central echogenic focus in the right thyroid lobe, too small to definitively characterize. There is normal echotexture, echogenicity and vascular flow throughout the remainder of the thyroid gland. IMPRESSION: 1. Multinodular goiter. Recommend ultrasound-guided biopsy of the 1.7 cm TI RADS 5 left thyroid nodul e. Reviewed, dictated and finalized at location B. IMPRESSION: 1. Multinodular goiter. Recommend ultrasound-guided biopsy of the 1.7 cm TI RAD S 5 left thyroid nodule.
== END 2024-12-18 09:40 | disposition home or self-care (01) ==
LOC: MICIMG 09:39
PROVIDERS: PCP Physician Assistant
DX: E04.2 Nontoxic multinodular goiter (principal)
CPT/HCPCS: 76536